=== PATIENT | female | born 1970 | race Caucasian/White ===

== ENCOUNTER → 2020-01-03 09:56 | Outpatient (BNVA) | payer OTHER, SELFPAY | PROVIDERS: Visit Provider Physician Assistant | DX: R11.10 Vomiting, unspecified (principal); Z98.84 Bariatric surgery status | CPT/HCPCS: 99212 ==

== ENCOUNTER 2020-01-11 07:15 | Outpatient (REF) | payer OTHER, SELFPAY ==
--- NOTE | 2020-01-11 07:34 | FL_ITS ---
EXAMINATION: XR GI SERIES CLINICAL INFORMATION: Vomiting. COMPARISON: None TECHNIQUE: Routine upper GI air-contrast study was performed. FINDINGS: Following oral administration of thick barium and effervescent granules, there is normal propagation of bolus from the oral cavity through the pharynx, esophagus into stomach without any evidence of obstruction, narrowing or stricture. On placing patient supine and prone lying, the course, caliber and peristalsis of the stomach, duodenal bulb and the sweep is normal. There is evidence of previous gastric sleeve surgery. There is a large gastroesophageal reflux associated with hiatal hernia. The mucosal pattern of the stomach or duodenum is normal. There are surgical madeleine in the right epigastric region from previous intervention. No gross bony abnormality seen. FLUOROSCOPY TIME: 0.9 minutes DOSE AREA PRODUCT: 15.105 uGy-m2 (microgray-meter squared) FL/FL upper GI series IMPRESSION: Evidence of previous gastric sleeve/reduction surgery with moderate gastroesophageal reflux and a qhcxp-dx-pspihpwh-sized hiatal hernia.
== END 2020-01-11 07:16 | disposition home or self-care (01) ==
LOC: HO.XRAY 07:15
PROVIDERS: Visit Provider Physician Assistant
DX: Z01.818 Encounter for other preprocedural examination (principal); R11.10 Vomiting, unspecified; E66.9 Obesity, unspecified
CPT/HCPCS: 74240

== ENCOUNTER → 2020-01-12 08:50 | Outpatient (BNVA) | payer OTHER, SELFPAY | PROVIDERS: Visit Provider Physician Assistant | DX: Z76.89 Persons encountering health services in other specified circumstances (principal) ==

== ENCOUNTER 2020-01-15 08:24 | Outpatient (REF) | payer OTHER, SELFPAY | END 2020-01-15 08:25 | disposition home or self-care (01) | LOC: HO.US 08:24 | PROVIDERS: Visit Provider Surgery | DX: Z13.89 Encounter for screening for other disorder (principal) ==

== ENCOUNTER 2020-01-25 07:54 | Day surgery (SDC) | payer OTHER, SELFPAY ==
[2020-01-24 10:35] VITALS: BMI 26.9
--- NOTE | 2020-01-24 12:31 | HO.ANESPROP2 ---
Documented by User: Faith Almanza 01/24/20 12:32 HPI - Anesthesia Eval Consult details Narrative: 49yo F for Upper Endoscopy PMFSH Past Medical History Medical History Hx of thyroid cancer Family History Family History Father Diabetes mellitus Glaucoma Hypertension Mother Glaucoma Diabetes mellitus Hypertension Brother Hypertension Sister Arthritis Surgical History Surgical History (Updated 01/25/20 @ 09:29 by Terrie Diaz) H/O thyroidectomy History of sleeve gastrectomy Hx of cholecystectomy Hx of esophagogastroduodenoscopy S/P panniculectomy Social History Social History Alcohol intake: never Smoking Status: Never smoker Second Hand Smoke Exposure: No Use of substances other than those prescribed or required for medical reasons: No Advance Directives: No Advance Directives Information Provided: No Advance Directives on File: No Meds Allergies Allergy/AdvReac Type Severity Reaction Status Date / Time No Known Allergies Allergy Unverified 01/03/20 10:17 [No Known Allergies*] Home Medications Medication Instructions Recorded Confirmed Type calcium citrate 315 mg 2 tab PO BID 01/03/20 01/12/20 History calcium-vitamin D3 6.25 mcg (250 unit) tablet cephalexin 500 mg capsule 500 mg PO BID 01/03/20 01/12/20 History levothyroxine 175 mcg tablet 175 mcg PO DAILY 01/03/20 01/12/20 History thiamine HCl (vitamin B1) 100 mg 100 mg PO DAILY 01/03/20 01/12/20 History tablet vitamin A 10,000 unit capsule 1 cap PO DAILY 01/03/20 01/12/20 History Exam Exam Date and Time: January 24, 2020 1231 Height,Weight and Vital Signs: Height 5 ft 3 in Weight 68.946 kg Assessment and Plan Assessment Anesthesia Assessment: Chart Reviewed Documented by User: Terrie Diaz 01/25/20 09:31 [facility] Past Medical History Medical History Hx of thyroid cancer Family History Family History Father Diabetes mellitus Glaucoma Hypertension Mother Glaucoma Diabetes mellitus Hypertension Brother Hypertension Sister Arthritis Family history of problems with anesthesia: No Surgical History Surgical History (Updated 01/25/20 @ 09:29 by Terrie Diaz) H/O thyroidectomy History of sleeve gastrectomy Hx of cholecystectomy Hx of esophagogastroduodenoscopy S/P panniculectomy History of Problems with Anesthesia: No Social History Social History Alcohol intake: never Smoking Status: Never smoker Second Hand Smoke Exposure: No Use of substances other than those prescribed or required for medical reasons: No Advance Directives: No Advance Directives Information Provided: No Advance Directives on File: No Meds Allergies Allergy/AdvReac Type Severity Reaction Status Date / Time No Known Allergies Allergy Unverified 01/03/20 10:17 [No Known Allergies*] Home Medications Medication Instructions Recorded Confirmed Type calcium citrate 315 mg 2 tab PO BID 01/03/20 01/12/20 History calcium-vitamin D3 6.25 mcg (250 unit) tablet cephalexin 500 mg capsule 500 mg PO BID 01/03/20 01/12/20 History levothyroxine 175 mcg tablet 175 mcg PO DAILY 01/03/20 01/12/20 History thiamine HCl (vitamin B1) 100 mg 100 mg PO DAILY 01/03/20 01/12/20 History tablet vitamin A 10,000 unit capsule 1 cap PO DAILY 01/03/20 01/12/20 History Exam Height,Weight and Vital Signs: Vital Signs Temp Pulse Resp BP Pulse Ox 01/25/20 08:13 98.1 F 68 16 118/73 100 Airway Mallampati Class: II TM Dist: >3cm Neck ROM: Full Heart: RRR Lungs: CTAB Assessment and Plan Assessment Anesthesia Assessment: Anesthesia Plan Discussed and Chart Reviewed Final Anesthetic Review NPO: Yes ASA Class: II Final Preanesthetic Review: No Changes in Pt Med Stat, Meds/Allgs Chart Reviewed, Consent Obtained/Reviewed and Anes Risks/Benef Reviewed Patient Risk: Low Procedure Risk: Low Assessment/Block/Sedation in SS: Assess/Block/Sedation-SS Anesthetic Plan Anesthetic Plan: MAC: Disposition: Standard PACU
[2020-01-25 08:13] VITALS: BP 118/73; PULSE 68; RESP 16; TEMP 36.7; O2SAT 100
[2020-01-25] MEDS: Lactated Ringers 1,000 ML 100 ML IVCONT (09:15)
--- NOTE | 2020-01-25 09:31 | MHC.SHP ---
Pre-Procedural Eval Section A The patient is an INPATIENT: No The History & Physical has been completed within 30 days and I have reviewed it.: Yes Section B Chief Complaint: Gerd Details of Present Illness: GERD Relevant Family History (Specify if Yes): No Relevant Social History: None Present Medications: see Short Stay Collaborative assessment Medical History: No relevant PMH History of Previous Operations: Relevant previous surgery/procedure and date(s) (sleeve gastrectomy) Allergies: Allergies Allergy/AdvReac Type Severity Reaction Status Date / Time No Known Allergies Allergy Unverified 01/03/20 10:17 [No Known Allergies*] Review of Systems Sugical H&P ROS: Negative: Constitution, Cardiovascular, Respiratory, Neurological, Psychiatric, Hem-Onc, Allergic/Immunologic, Gastrointestinal, Genitourinary, Musculoskeletal, Integumentary, Endocrine and Eyes/Ears/Nose/Throat Exam Surgical H&P Exam: Normal: HEENT, Normal: Heart, Normal: Lungs, Normal: Extremities, Normal: Abdomen, Normal: Skin and Normal: Neurological Plan Diagnosis/Plan: Unchanged I have reviewed the history and physical and performed a pertinent physical examination on my patient. No changes have occurred unless specified.
[2020-01-25 10:26] VITALS: BP 110/69; PULSE 88; RESP 20; TEMP 36.6; O2SAT 100
--- NOTE | 2020-01-25 10:32 | PM.OP ---
Brief Operative Note Date of Service: 01/25/20 Pre-op diagnosis: GERD and hiatal hernia, s/p sleeve gastrectomy Post-op diagnosis: same Procedure: PROCEDURE DATE: 01/25/2020 PREOPERATIVE DIAGNOSIS: GERD, hiatal hernia, s/p sleeve gastrectomy POSTOPERATIVE DIAGNOSIS: Same as above. 1) small hiatal hernia PROCEDURE: [id number]-noqkrfuuaqon with biopsies Surgeon: El Gu M.D.. Ph.D. Pastry Decorator: None Anesthesia: IV sedation Estimated blood loss: Minimal FINDINGS AND PROCEDURE: OPERATIVE INDICATIONS: The patient is a 49 year old female known to me who underwent a laparoscopic sleeve gastrectomy. The patient had remarkable weight loss so far and had a completely uneventful recovery. The patient was doing very well but has recently been complaining of GERD. UGI showed GERD and a small hiatal hernia. Based on this information I recommended an upper endoscopy to evaluate the patient's symptoms. Risks and complications of the surgery were discussed with the patient in advance particularly the possibility of perforation or bleeding that may require surgical intervention. The patient understood the risks and was in agreement with the plan. PROCEDURE: After informed consent was obtained by the patient, the patient was transferred to the Operating Room and was placed in the supine position. After successful induction of IV sedation, a mouth block was inserted and the patient was placed in the left lateral decubitus position. An upper endoscopy was performed next, the oropharynx and esophagus appeared within the normal limits. There was a small hiatal hernia 2 cm in length. The z-line was smooth. Two biopsies were obtained from the distal esophagus 2-3 cm proximal to the GE junction and two additional biopsies from the GE junction. The sleeve was entered and it appeared to be of normal size. There was no gastritis at distal antrum. There was no stricture or ulcer. Biopsies were obtained from the proximal sleeve as well as the distal antrum. No significant bleeding was noted from any of the biopsy sites. The scope was then advanced into the duodenum which appeared to be normal as well. At that point the duodenum and the sleeve were decompressed and the scope was withdrawn from the patient's mouth. The patient extubated and was transferred in stable condition to the Recovery Room for further care. I was present and performed all steps of the procedure. There were no residents to assist with this case. El Gu M.D., Ph.D. Surgeon: Abelardo Gu MD Anesthesia: MAC Estimated blood loss (mL): 5 IV fluids (mL): 400 Urine output (mL): 0 (No Edwards to record) Pathology: other (1) distal esophagus x2, GEJ x2, proximal sleeve x1, prepyloric region x1) Condition: stable Disposition: PACU
[2020-01-25 10:41] VITALS: BP 120/70; PULSE 61; RESP 20; TEMP 36.6; O2SAT 100
--- NOTE | 2020-01-25 10:59 | HO.POSTANES ---
Post Anesthesia Evaluation Post Anesthesia Evaluation Vital Signs: Vital Signs Temp Pulse Resp BP Pulse Ox 01/25/20 10:41 97.9 F 61 20 120/70 100 01/25/20 10:26 97.9 F 88 20 110/69 100 01/25/20 08:13 98.1 F 68 16 118/73 100 Anesthesia: Monitored Mental Status: Awake Pain Control: Satisfactory Nausea/Vomiting: None Hydration: Adequate Anesthesia-Related Issues: No Anes. Related Issues
== END 2020-01-25 11:23 | disposition home or self-care (01) ==
PROVIDERS: Visit Provider Surgery
PROC: 0DJ08ZZ Inspection of Upper Intestinal Tract, Via Natural or Artificial Opening Endoscopic (ICD-10-PCS; CPT 43235; principal; 2020-01-25 09:10)
DX: K21.00 Gastro-esophageal reflux disease with esophagitis, without bleeding (principal); K44.9 Diaphragmatic hernia without obstruction or gangrene; Z98.84 Bariatric surgery status; Z90.49 Acquired absence of other specified parts of digestive tract; Z79.899 Other long term (current) drug therapy; Z85.850 Personal history of malignant neoplasm of thyroid
CPT/HCPCS: 43239; 88305; 88342

== ENCOUNTER → 2020-01-31 07:44 | Outpatient (BNVA) | payer OTHER, SELFPAY | PROVIDERS: Visit Provider Surgery | DX: Z76.89 Persons encountering health services in other specified circumstances (principal) ==

== ENCOUNTER → 2020-03-01 08:04 | Outpatient (BNVA) | payer OTHER, SELFPAY | PROVIDERS: Visit Provider Surgery ==

== ENCOUNTER → 2020-03-13 08:26 | Outpatient (BNVA) | payer OTHER, SELFPAY | PROVIDERS: Visit Provider Physician Assistant ==

== ENCOUNTER → 2020-04-05 08:12 | Outpatient (BNVA) | payer OTHER, SELFPAY | PROVIDERS: Visit Provider Surgery ==

== ENCOUNTER 2020-04-09 09:54 | Outpatient (REF) | payer OTHER, SELFPAY ==
[2020-04-09 10:41] LABS: Blood Urea Nitrogen 14 mg/dL (9-16); Estimated Glomerular Filt Rate > 60
== END 2020-04-09 09:55 | disposition home or self-care (01) ==
LOC: HO.LAB 09:54
PROVIDERS: Visit Provider Physician Assistant
DX: R11.0 Nausea (principal)
CPT/HCPCS: 36415; 82565; 84520

== ENCOUNTER 2020-04-12 07:28 | Outpatient (REF) | payer OTHER, SELFPAY ==
--- NOTE | ~2020-04-12 | CT_ITS ---
EXAMINATION: CT ABDOMEN AND PELVIS WITH CONTRAST CLINICAL INFORMATION: Diaphragmatic hernia without obstruction or gangrene COMPARISON: Previous abdominal ultrasound February 2018 TECHNIQUE: Multidetector volumetric images were obtained from the superior aspect of the liver through the pubic symphysis following administration 85 mL of Omnipaque 350 intravenous contrast. Sagittal and coronal reformatted images were obtained on the technologist's workstation. Oral contrast: Yes This CT examination was performed using dose optimization techniques as appropriate, variously including the following: *Automated exposure control *Adjustment of mA and/or kV according to patient size (this includes techniques or standardized protocols for targeted exams where dose is matched to indication/reason for exam; i.e. extremities or head) *Use of iterative reconstruction technique DLP: 4-5 mGy-cm FINDINGS: LUNG BASES: There is linear scarring or subsegmental atelectasis at the right lung base. There is mild right pleural thickening adjacent to the right lower lobe. No diaphragmatic hernia is seen. LIVER, GALLBLADDER, AND BILIARY TREE: The liver is normal in size, shape, and attenuation. There is a 2.5 cm heterogeneously enhancing lesion in the lateral segment of the left lobe of liver. This was not appreciated on ultrasound. This probably represents a hemangioma. No other focal liver lesion is seen. The gallbladder has been removed. There is no biliary duct dilatation. PANCREAS: Unremarkable. SPLEEN: Unremarkable. ADRENAL GLANDS: Unremarkable. KIDNEYS AND URETERS: The kidneys are normal in size, shape, and attenuation. No hydronephrosis, hydroureter, or calculi seen. No perinephric stranding. BLADDER: Unremarkable. GASTROINTESTINAL TRACT: There are postsurgical changes from gastric sleeve procedure. There is a small hiatal hernia. There is mild diverticulosis of the colon. ABDOMINAL WALL: There are postsurgical changes to the anterior abdominal wall. LYMPH NODES: Normal. VASCULAR: Unremarkable. PELVIC VISCERA: There is a small 1.5 cm right ovarian cyst. There is trace fluid in the pelvis. OSSEOUS STRUCTURES: There are may be a transitional vertebral body segment or sacralization of L5. There are degenerative changes of the lower lumbar sacral spine. There are mild degenerative changes at the hip joints. CT/CT abdomen pelvis w con IMPRESSION: Postoperative change from gastric sleeve procedure. Small hiatal hernia. No diaphragmatic hernia is seen. 2.5 cm liver lesion probably representing a hemangioma.
[2020-04-12] MEDS: iohexoL 350 MG/ML 75 ML INFUS..BTL IV (10:10)
[2020-04-12] MEDS: Barium Sulfate Oral (Berry) 450 ML ORAL.SUSP 900 ML PO (10:11)
== END 2020-04-12 07:29 | disposition home or self-care (01) ==
LOC: HO.CT 07:28
PROVIDERS: PCP Internal Medicine; Visit Provider Surgery
DX: K44.9 Diaphragmatic hernia without obstruction or gangrene (principal)
CPT/HCPCS: 74177; Q9967

== ENCOUNTER 2020-04-16 09:33 | Outpatient (REF) | payer OTHER, SELFPAY ==
--- NOTE | ~2020-04-16 | XR_ITS ---
EXAMINATION: XR CHEST CLINICAL INFORMATION: Diaphragmatic hernia. COMPARISON: 05/27/[address] scan of the abdomen and pelvis dated 04/12/2020. TECHNIQUE: 2 views of the chest were obtained. FINDINGS: The lungs are clear. The heart and mediastinal structures are unremarkable. There is a small hiatal hernia. XR/XR chest 2V IMPRESSION: 1. No acute cardiopulmonary process. 2. Small hiatal hernia correlating with recent CT findings.
--- NOTE | 2020-04-16 09:58 | ECG_ITS ---
Test Reason : DIAPRAGMATIC HERNIA Blood Pressure : / mmHG Vent. Rate : 059 BPM Atrial Rate : 059 BPM P-R Int : 152 ms QRS Dur : 062 ms QT Int : 428 ms P-R-T Axes : 049 033 012 degrees QTc Int : 423 ms Sinus bradycardia Low voltage QRS Borderline ECG When compared with ECG of 19-JAN-2018 13:42, No significant change was found Referred By: Abelardo Gu Electronically Signed By:Norman Randall
[2020-04-16 10:06] LABS: MANUAL DIFF FLAG NO
[2020-04-16 10:08] LABS: Basophils Percent Auto 0.9 % (0-2); Eosinophils Absolute Auto 0.1 X10*3/uL (0.0-0.4); Eosinophils Percent Auto 1.6 % (0-4); Hematocrit 41.1 % (37-47); Hemoglobin 13.1 g/dl (12.0-16.0); Imm Gran Abs Auto 0.01 X10*3/uL (0.00-0.03); Imm Gran Pct Auto 0.2 % (0.0-0.4); Lymphocytes Percent Auto 22.5 % (20-40); Mean Corpuscular HGB Conc 31.9 g/dl (31.0-35.0); Mean Corpuscular Hemoglobin 30.5 pg (27.0-33.0); Mean Corpuscular Volume 95.6 fL (80-98); Mean Platelet Volume 10.6 fL (9.4-12.3); Monocytes Absolute Auto 0.5 X10*3/uL (0.1-1.2); Monocytes Percent Auto 10.3 % (2-11); Neutrophils Absolute Auto 2.9 X10*3/uL (2.0-8.3); Neutrophils Percent Auto 64.5 % (45-73); Platelet Count 193 X10*3/uL (160-400); Red Cell Distribution Width 13.4 % (11.0-16.0); White Blood Count 4.5 X10*3/uL (4.8-10.8)
[2020-04-16 10:14] LABS: INTERNATIONAL NORM RATIO 1.1 (0.9-1.1); Prothrombin Time 13.2 SEC (10.8-13.0)
[2020-04-16 10:17] LABS: Partial Thromboplastin Time 34.7 SEC (24.1-38.0)
[2020-04-16 10:26] LABS: Alanine Aminotransferase 22 U/L (0-31); Albumin Level 3.8 g/dL (3.5-5.0); Alkaline Phosphatase 51 U/L (39-117); Anion Gap 7 (12-20); Aspartate Amino Transferase 22 U/L (5-31); Bilirubin Total 0.7 mg/dL (0.0-1.0); Blood Urea Nitrogen 14 mg/dL (9-16); C Reactive Protein 0.06 mg/dL (< or = 0.50); Calcium 8.6 mg/dL (8.4-10.2); Carbon Dioxide 30 mmol/L (22-29); Chloride 106 mmol/L (96-108); Cholesterol 158 mg/dL; Estimated Glomerular Filt Rate > 60; Glucose Random 91 mg/dL (60-115); HDL Cholesterol 43 mg/dL; LDL Cholesterol Calculated 97 mg/dl; Potassium 4.3 mmol/L (3.3-5.1); Sodium 139 mmol/L (135-145); Total Protein 7.8 g/dL (6.5-8.0); Triglycerides 92 mg/dL
[2020-04-16 10:27] LABS: Estimated Average Glucose 100 mg/dL; Hemoglobin A1c % 5.1 %
[2020-04-18 05:17] LABS: Insulin Level Total 4.9 uIU/mL
== END 2020-04-16 09:34 | disposition home or self-care (01) ==
LOC: HO.LAB 09:33
PROVIDERS: Visit Provider Surgery
DX: K44.9 Diaphragmatic hernia without obstruction or gangrene (principal); K21.9 Gastro-esophageal reflux disease without esophagitis; R00.1 Bradycardia, unspecified
CPT/HCPCS: 36415; 71046; 80053; 80061; 83036; 83525; 84443; 85025; 85610; 85730; 86140; 93005

== ENCOUNTER 2020-04-23 13:22 | Inpatient (IN) | payer OTHER, SELFPAY ==
[2020-04-17 10:51] VITALS: BMI 29.0
--- NOTE | 2020-04-22 09:40 | HO.ANESPROP2 ---
Documented by User: Faith Almanza 04/22/20 09:44 HPI - Anesthesia Eval Consult details Narrative: 49yo F for Hernia Repair Diaphragmatic Laproscopic PMFSH Active Problems Active Problems: All Active Problems (Updated 04/17/20 @ 10:40 by Yessenia Tucker) Emesis (Acute) Hiatal hernia (Acute) Overweight (Acute) GERD (gastroesophageal reflux disease) (Acute) Esophagitis determined by biopsy (Acute) H/O thyroidectomy (Acute) Hx of esophagogastroduodenoscopy (Acute) History of sleeve gastrectomy (Acute) Past Medical History Medical History Hx of thyroid cancer Thyroid disease Family History Family History Father Diabetes mellitus Glaucoma Hypertension Mother Glaucoma Diabetes mellitus Hypertension Brother Hypertension Sister Arthritis Surgical History Surgical History H/O thyroidectomy History of sleeve gastrectomy Hx of cholecystectomy Hx of esophagogastroduodenoscopy S/P panniculectomy Social History Social History Alcohol intake: never Smoking Status: Never smoker Second Hand Smoke Exposure: No Advance Directives Information Provided: No Meds Allergies Allergy/AdvReac Type Severity Reaction Status Date / Time No Known Allergies Allergy Verified 04/23/20 08:33 [No Known Allergies*] Home Medications Medication Instructions Recorded Confirmed Last Taken Type calcium citrate 315 mg 2 tab PO BID 01/03/20 04/17/20 Unknown History calcium-vitamin D3 6.25 mcg (250 unit) tablet levothyroxine 175 mcg tablet 175 mcg PO DAILY 01/03/20 04/17/20 04/23/20 06:00 History thiamine HCl (vitamin B1) 100 mg 100 mg PO DAILY 01/03/20 04/17/20 Unknown History tablet vitamin A 10,000 unit capsule 1 cap PO DAILY 01/03/20 04/17/20 Unknown History Exam Exam Date and Time: April 22, 2020 0940 Height,Weight and Vital Signs: Height 5 ft 3 in Weight 74.389 kg Pertinent Lab Results Pertinent Lab Results: Laboratory Tests 04/16/20 09:45 Blood Type A Positive Antibody Screen NEGATIVE Laboratory Tests 04/16/20 04/16/20 09:45 09:45 WBC 4.5 L Hgb 13.1 Hct 41.1 Plt Count 193 Sodium 139 Potassium 4.3 Chloride 106 Carbon Dioxide 30 H BUN 14 Creatinine 0.77 Laboratory Tests 04/16/20 04/16/20 04/16/20 09:45 09:45 09:45 PT 13.2 H INR 1.1 APTT 34.7 Hemoglobin A1c % 5.1 TSH 1.20 Narrative Narrative: EKG 04/16/20 Vent. Rate : 059 BPM Atrial Rate : 059 BPM P-R Int : 152 ms QRS Dur : 062 ms QT Int : 428 ms P-R-T Axes : 049 033 012 degrees QTc Int : 423 ms Sinus bradycardia Low voltage QRS Borderline ECG When compared with ECG of 19-JAN-2018 13:42, No significant change was found Assessment and Plan Assessment Anesthesia Assessment: Chart Reviewed Documented by User: Rohan Parra 04/23/20 11:55 PMFSH Past Medical History Medical History Hx of thyroid cancer Thyroid disease Family History Family History Father Diabetes mellitus Glaucoma Hypertension Mother Glaucoma Diabetes mellitus Hypertension Brother Hypertension Sister Arthritis Surgical History Surgical History H/O thyroidectomy History of sleeve gastrectomy Hx of cholecystectomy Hx of esophagogastroduodenoscopy S/P panniculectomy Social History Social History Alcohol intake: never Smoking Status: Never smoker Second Hand Smoke Exposure: No Advance Directives Information Provided: No Meds Allergies Allergy/AdvReac Type Severity Reaction Status Date / Time No Known Allergies Allergy Verified 04/23/20 08:33 [No Known Allergies*] Home Medications Medication Instructions Recorded Confirmed Last Taken Type calcium citrate 315 mg 2 tab PO BID 01/03/20 04/17/20 Unknown History calcium-vitamin D3 6.25 mcg (250 unit) tablet levothyroxine 175 mcg tablet 175 mcg PO DAILY 01/03/20 04/17/20 04/23/20 06:00 History thiamine HCl (vitamin B1) 100 mg 100 mg PO DAILY 01/03/20 04/17/20 Unknown History tablet vitamin A 10,000 unit capsule 1 cap PO DAILY 01/03/20 04/17/20 Unknown History Exam Airway Mallampati Class: II Neck ROM: Full Loose/Missing/Broken Teeth: No Heart: [id number] Lungs: cta b/l Assessment and Plan Assessment Anesthesia Assessment: Anesthesia Plan Discussed, PAT Visit and Chart Reviewed Final Anesthetic Review NPO: Yes ASA Class: II Final Preanesthetic Review: No Changes in Pt Med Stat, Consent Obtained/Reviewed and Anes Risks/Benef Reviewed Patient Risk: Low Procedure Risk: Low Assessment/Block/Sedation in SS: Assess/Block/Sedation-SS Anesthetic Plan Anesthetic Plan: GA and Agree w/ Assess. and Plan Disposition: Standard PACU
--- NOTE | 2020-04-22 22:41 | MHC.SHP ---
Pre-Procedural Eval Section A The patient is an INPATIENT: Yes The History & Physical has been completed within 30 days and I have reviewed it.: No Section B Chief Complaint: diaphragmatic hernia without obstruction Details of Present Illness: GERD and diaphragmatic hernia Relevant Family History (Specify if Yes): No Relevant Social History: None Present Medications: see Short Stay Collaborative assessment Medical History: No relevant PMH History of Previous Operations: Relevant previous surgery/procedure and date(s) (Sleeve gastrectomy) Allergies: Allergies Allergy/AdvReac Type Severity Reaction Status Date / Time No Known Allergies Allergy Unverified 01/03/20 10:17 [No Known Allergies*] Review of Systems Sugical H&P ROS: Negative: Constitution, Cardiovascular, Respiratory, Neurological, Psychiatric, Hem-Onc, Allergic/Immunologic, Gastrointestinal, Genitourinary, Musculoskeletal, Integumentary, Endocrine and Eyes/Ears/Nose/Throat Exam Surgical H&P Exam: Normal: HEENT, Normal: Heart, Normal: Lungs, Normal: Extremities, Normal: Abdomen, Normal: Skin and Normal: Neurological Plan Diagnosis/Plan: Unchanged I have reviewed the history and physical and performed a pertinent physical examination on my patient. No changes have occurred unless specified.
[2020-04-23] VITALS (15 sets, daily range): BP systolic 109–166; BP diastolic 70–94; PULSE 56–78; RESP 14–20; TEMP 36.1–36.9; O2SAT 98–100
[2020-04-23 09:13] LABS: COVID-19 Test Negative (Negative)
--- NOTE | 2020-04-23 13:20 | P.BOP_ITS ---
Brief Operative Note Date of Service: 04/23/20 Pre-op diagnosis: GERD and diaphragmatic hernia Post-op diagnosis: same Procedure: PROCEDURE: Esophago-gastroscopy, laparoscopic repair of incarcerated diaphragmatic hernia, laparoscopic lysis of adhesions, INDICATIONS: This is a 49 year-old female who underwent a laparoscopic sleeve gastrectomy on 05/26/2018. The patient has done well achieving a BMI of 25.2 kg/m2. She has developed however persistent GERD which is not well controlled with continuous use of PPI. An UGI showed a diaphragmatic hernia which was not present at the preoperative UGI. This was confirmed by endoscopy which also demonstrated esophagitis. The risks and complications of the procedure were discussed with the patient in advance, particularly the possibility of ; pulmonary embolism; bleeding; GERD; cardiac, pulmonary, or renal complications. The patient understood all the risks, and was in agreement to proceed with surgery. DESCRIPTION OF PROCEDURE: After informed consent was obtained from the patient, the patient was given preoperative antibiotics, and was transferred to the operating room. After successful induction of general anesthesia, pneumatic compressive devices were placed on both lower extremities. An upper endoscopy was performed next. The oropharynx and esophagus appeared to be within normal limits. There was a diaphragmatic hernia present of moderate size consistent with the findings of the preoperative upper GI. The stomach was entered. Then after all fluid and air were suctioned and the stomach was fully decompressed, the scope was withdrawn and secured in the mid esophagus. The patient was then prepped and draped in the usual sterile manner, and abdominal access was established at the right upper quadrant with the Shalini technique. A 12 mm blunt port was inserted, and the abdomen was insufflated with CO2 to a pressure of 15 mmHg. Under direct visualization, additional ports were placed, specifically two 5 mm Versi-step ports to the left upper quadrant, and a 5 mm Versi-Step port to the right upper quadrant. 1% lidocaine plan was used to infiltrate all port sites as well as all fascia defects. Using the EndoClose suture passer device, we placed a #1 Polysorb tie across the falciform ligament in order to retract it up against the abdominal wall and prevent injury of the ligament with our instruments during the procedure. There were no adhesions in the abdomen. Following that, the patient was placed in a steep reverse Trendelenburg position. An additional 5 mm port was placed to the right flank for the Mediflex retractor that was used to retract the left lobe of the liver. There was an obvious significant-sized hiatal hernia. I continued dissecting along the hiatus toward the left giuliano and the angle of His. I fully mobilized the fat pad that was incarcerated in the hernia. Dissection was difficult as there was scarring from previous sleeve gastrectomy. Nevertheless the right planes were identified and the left giuliano was completely freed from the esophagus. I then continued by dissecting even further into the posterior retro- esophageal space all the way to the angle of His. I continued to mobilize the esophagus into the mediastinum circumferentially. Both vagal nerves were seen and preserved. The right giuliano was also dissected completely. This was also difficult because there was a replaced left hepatic artery. This was preserved but made the dissection more difficult. At that point, I was able to have at least 3 to 5 cm of esophagus into the abdomen. After I completely mobilized the esophagus from both the left and right giuliano and I had a good mobilization of the esophagus circumferentially, I closed the hernia defect with three interrupted #0 Surgidac sutures using the Endo Stitch device, two which were placed posterior and one anterior to the esophagus. An upper endoscopy was performed. There was no narrowing at the GE junction. The GE junction was intra-abdominal for at least 2-3cm confirmed by endoscopy. The scope was easily advanced all the way to the pylorus which was clearly visualized. There was no narrowing anywhere and the sleeve's caliber was even throughout. The sleeve's staple line was inspected and there was no evidence of ischemia, bleeding or dehiscence. At that point the gastroscope was withdrawn from the patient?s mouth while we were decompressing the bowel and the stomach from any remaining air. I looked into the lesser sac to see how the sleeve was situating and it was situating well. There was no bleeding from the staple line, spleen, or short gastric vessels. The Mediflex retractor was removed, and the undersurface of the liver was inspected and there was no bleeding. The patient was placed in supine position. I closed the fascial defect of the 12 mm port site with a figure of eight #1 Polysorb suture. Then 100 cc 0.25 % Marcaine plain with 10 mg of Dexamethasone were used to infiltrate the fascial closure as well as all skin incisions. At this point, the abdomen was deflated, all ports were removed under direct vision, and no bleeding was noted from any of the port sites. The skin incisions were irrigated with saline and were closed with 4-0 absorbable monofilament sutures. Steri-Strips and OpSites were used to cover all incisions. The patient was extubated and was transferred in stable condition to the recovery room for further care. I was present and performed all elena parts of the procedure. Ms. Orellana was the apartment assistant manager. There were no residents to assist with this case. El Gu MD, PhD, FACS Surgeon: Abelardo Gu MD Anesthesia: GETA, local and other (TAP block) Sheet Metal Layout Worker: Jerri Orellana Estimated blood loss (mL): 10 IV fluids (mL): 2,000 Urine output (mL): 0 (No Edwards to record) Pathology: none sent Condition: stable Disposition: PACU
--- NOTE | 2020-04-23 13:28 | PM.DS ---
DS: Providers Provider Date of Service: 04/24/20 Primary care physician: Unknown Physician DS: Medications Discharge Medications Home Medications: Home Medications Medication Instructions Recorded Confirmed calcium citrate 315 mg 2 tab PO BID 01/03/20 04/17/20 calcium-vitamin D3 6.25 mcg (250 unit) tablet levothyroxine 175 mcg tablet 175 mcg PO DAILY 01/03/20 04/17/20 thiamine HCl (vitamin B1) 100 mg 100 mg PO DAILY 01/03/20 04/17/20 tablet vitamin A 10,000 unit capsule 1 cap PO DAILY 01/03/20 04/17/20 Previous Rx's Medication Instructions Recorded pantoprazole 40 mg tablet,delayed 40 mg PO DAILY #30 tab 01/17/20 release sucralfate 1 gram tablet 1 g PO BID #60 tab 02/14/20 ondansetron HCl 4 mg tablet 4 mg PO Q12H #20 tab 04/13/20 DS: Summary Time Spent with Patient Time attestation: Total time spent providing and/or coordinating discharge services: 15 minutes ADMITTING DIAGNOSIS: hiatal hernia, GERD, hx morbid obesity, thyroid cancer DISCHARGE DIAGNOSIS: same, s/p laparoscopic hiatal hernia repair PAST SURGICAL HISTORY: laparoscopic sleeve gastrectomy, EGD, paaniculectomy, throidectomy, cholecystectomy PROCEDURE: upper endoscopy, laparoscopic hiatal hernia repair DISCHARGE SUMMARY: History of Present Illness: The patient is a 49 year-old woman with intractable reflux symptoms s/p laparoscopic sleeve gastrectomy who lost a total of 90.4 lbs or 35.5% TBWL. PT had CT confirmation of her reflux and was consented for laparoscopic repair of hiatal hernia. Risks and complications of the surgery were discussed with the patient in advance, particularly the possibility of , pulmonary embolism, anastomotic leak, bleeding, bowel injury, GERD, cardiac, renal or pulmonary complications. The patient understood all the risks and was in agreement with the surgical plan. Hospital Course: The patient underwent an uneventful laparoscopic hiatal hernia repair on the day of admission. Postoperatively, the patient was transferred to the surgical floor. The patient was on IV Acetaminophen and IV dilaudid for pain control. Patient was started on clear liquid diet POD #0. On postoperative day one, the patient was feeling well without nausea, vomiting, fevers, or tachycardia. The patient had some mild incisional pain. The abdomen was soft. On the morning of postoperative day one the patient did fairly well, having some incisional pain, but able to ambulate adequately and to tolerate liquids well. Since the patient is doing well, we decided that the patient was ready to be discharged. The patient was given instructions to follow-up with me next week and to call my office for any fever over 101, persistent abdominal pain, nausea, vomiting, GERD, symptoms of DVT such as calf tenderness, or leg swelling, or pulmonary embolism such as chest pain or shortness of breath. The patient was given prescription for Tylenol for pain, Zofran prn for nausea, and pantoprazole and carafate. The patient was encouraged to ambulate and use the incentive spirometer. The patient was allowed to shower, but no baths, and encouraged to stay active at home. All of these instructions were given to the patient personally. All questions were answered and the patient understood all instructions, the instructions were also given to the patient in print. Discharge coordination time: Less than 30 minutes Physical Exam Vital Signs: Vital Signs: Last Vital Signs Temp 97.2 F 04/23/20 09:02 Pulse 56 04/23/20 09:02 Resp 16 04/23/20 09:02 BP 125/77 04/23/20 09:02 Pulse Ox 99 04/23/20 09:02 Body Mass Index 29.0 DS: Data Data Completed and Pending Labs on day of discharge: Laboratory Results - last 24 hr 04/23/20 08:35 COVID-19 (MEY) Negative COVID-19 Clin Com See Note Discharge Plan Discharge Patient Disposition: Home, Self-Care Referrals: Physician,Unknown [Primary Care Provider] - Discharge Medications: Continued pantoprazole 40 mg tablet,delayed release (DR/EC) 40 mg PO DAILY Qty: 30 RF: 3 sucralfate 1 gram tablet 1 g PO BID Qty: 60 RF: 0 ondansetron HCl [Zofran] 4 mg tablet 4 mg PO Q12H Qty: 20 RF: 0 levothyroxine 175 mcg tablet 175 mcg PO DAILY RF: 0 vitamin A 10,000 unit capsule 1 cap PO DAILY RF: 0 calcium citrate-vitamin D3 315 mg-6.25 mcg (250 unit) tablet 2 tab PO BID RF: 0 thiamine HCl (vitamin B1) 100 mg tablet 100 mg PO DAILY RF: 0 Discharge Orders: Discharge Order (Routine); Ordered 04/24/20 Ordered By: Abelardo Gu Activity on Discharge: As tolerated Activity Restrictions/Additional Instructions: No tub baths, sex or returning to work until discussed at first post op appointment. No exercise, alcohol, tobacco or illegal drug use. Continue to use incentive spirometer hourly while awake. Walk in home for 5- 10 minutes every 2 hours during the first week. Care Plan Goals: REsolve GERD Health Concerns: none Plan of Treatment: Start phsae 3 bariatric diet
--- NOTE | 2020-04-23 13:31 | PM.PNGS ---
Subjective Subjective Date of Service: 04/24/20 Interval history: Patient has mild incisional pain but was able to ambulate and use the incentive spirometer. She is tolerating 1oz of water every 15min. Physical Exam Vital Signs: Vital Signs: Last Vital Signs Temp 97.2 F 04/23/20 09:02 Pulse 56 04/23/20 09:02 Resp 16 04/23/20 09:02 BP 125/77 04/23/20 09:02 Pulse Ox 99 04/23/20 09:02 Body Mass Index 29.0 GI: Inspection: Yes normal to inspection and Yes incision (dry, clean and intact) Extrem: Right lower extremity: normal to inspection (no calf tenderness) Left lower extremity: normal to inspection (no calf tenderness) Progress Note: A&P Assessment and plan (1) Hiatal hernia: Problem details: reviewed UGI with Dr Casanova - no surgical treatment needed at this time. Status: Acute (2) GERD (gastroesophageal reflux disease): Status: Acute (3) Overweight: Status: Acute (4) Esophagitis determined by biopsy: Status: Acute (5) Hypothyroidism: Status: Acute (6) Anxiety: Status: Acute (7) Headaches due to old head injury: Status: Acute (8) Status post repair of paraesophageal diaphragmatic hernia: Status: Acute Assessment and Plan: 49 year old Female was admitted 04/23/2020 with morbid obesity and comorbidities. Problem 1: s/p repair of incarcerated diaphragmatic hernia and lysis of adhesions Status: Doing well Plan: Check am labs, If OK, will begin phase 1 bariatric diet. Fall Risk Details Current Medications: Current Medications Generic Name Dose Route Start Last Admin Trade Name Freq PRN Reason Stop Dose Admin Fentanyl 50 mcg 04/23/20 11:55 Fentanyl Citrate/Pf 100 Mcg/2 Ml Vial IVPUSH Q5M PRN Pain, Moderate (Pain Scale 4-6 Hydromorphone HCl 0.5 mg 04/23/20 11:55 Hydromorphone Hcl 0.5 Mg/0.5 Ml Syringe IVPUSH Q5M PRN Pain, Severe (Pain Scale 7-10) Lactated Ringer's 1,000 mls @ 100 mls/hr 04/22/20 22:45 Lr IVCONT .Q10H MARCO Lactated Ringer's 1,000 mls @ 100 mls/hr 04/23/20 08:30 Lr IVCONT .Q10H MARCO Promethazine HCl 12.5 mg/ 50.5 mls @ 202 mls/hr 04/23/20 11:55 Sodium Chloride IV ONCE PRN Nausea and Vomiting Ondansetron HCl 4 mg 04/23/20 11:55 Ondansetron Hcl 4 Mg/2 Ml Vial IVPUSH ONCE PRN Nausea and Vomiting Oxycodone HCl 10 mg 04/23/20 11:55 Oxycodone Hcl Immed Release 5 Mg Tablet PO ONCE PRN Pain, Mild (Pain Scale 1-3) Time Spent With Patient Time: Total time spent is greater than 50% in coordination of care (as documented) at patient's floor/unit and/or counseling patient: Time with patient: less than 15 minutes
[2020-04-23] MEDS: oxyCODONE HCl Immed Release 5 MG TABLET 10 MG PO (14:30)
[2020-04-23] MEDS: Lactated Ringers 1,000 ML 125 ML IVCONT (16:12)
[2020-04-23] MEDS: 0.9 % Sodium Chloride Flush 3 ML SYRINGE IVFLUSH ×2 (16:13→22:59)
[2020-04-23] MEDS: ceFAZolin Sodium/Dextrose,Iso 2 GM/50 ML PIGGYBACK IV (16:23)
[2020-04-23] MEDS: Famotidine/PF 20 MG/2 ML VIAL IVPUSH ×2 (16:26→22:59)
[2020-04-23] MEDS: HYDROmorphone HCl 0.5 MG/0.5 ML SYRINGE 0.25 MG IVPUSH ×2 (16:38→22:58)
[2020-04-23] MEDS: ondansetron HCL 4 MG/2 ML VIAL IVPUSH (18:26)
[2020-04-24] VITALS: BP 92/60; PULSE 64; RESP 18; TEMP 36.4; O2SAT 99
[2020-04-24] MEDS: Lactated Ringers 1,000 ML 125 ML IVCONT (00:38)
[2020-04-24 03:27] VITALS: BP 93/58; PULSE 64; RESP 18; TEMP 37; O2SAT 97
[2020-04-24 03:45] VITALS: RESP 18
[2020-04-24] MEDS: ondansetron HCL 4 MG/2 ML VIAL IVPUSH (03:45)
[2020-04-24] MEDS: HYDROmorphone HCl 0.5 MG/0.5 ML SYRINGE 0.25 MG IVPUSH (03:45)
[2020-04-24 06:49] LABS: MANUAL DIFF FLAG NO
[2020-04-24 06:57] LABS: Basophils Percent Auto 0.2 % (0-2); Hematocrit 37.7 % (37-47); Hemoglobin 12.2 g/dl (12.0-16.0); Imm Gran Abs Auto 0.01 X10*3/uL (0.00-0.03); Imm Gran Pct Auto 0.2 % (0.0-0.4); Lymphocytes Percent Auto 15.1 % (20-40); Mean Corpuscular HGB Conc 32.4 g/dl (31.0-35.0); Mean Corpuscular Hemoglobin 30.3 pg (27.0-33.0); Mean Corpuscular Volume 93.8 fL (80-98); Mean Platelet Volume 10.9 fL (9.4-12.3); Monocytes Absolute Auto 0.6 X10*3/uL (0.1-1.2); Monocytes Percent Auto 9.2 % (2-11); Neutrophils Absolute Auto 4.9 X10*3/uL (2.0-8.3); Neutrophils Percent Auto 75.3 % (45-73); Platelet Count 207 X10*3/uL (160-400); Red Blood Count 4.02 X10*6/uL (4.20-5.50); Red Cell Distribution Width 13.4 % (11.0-16.0); White Blood Count 6.5 X10*3/uL (4.8-10.8)
[2020-04-24 07:20] LABS: Anion Gap 10 (12-20); Blood Urea Nitrogen 8 mg/dL (9-16); Calcium 7.8 mg/dL (8.4-10.2); Carbon Dioxide 26 mmol/L (22-29); Chloride 103 mmol/L (96-108); Creatinine Clr Calc Pharmacy 101.6; Estimated Glomerular Filt Rate > 60; Glucose Random 115 mg/dL (60-115); Potassium 4.3 mmol/L (3.3-5.1); Sodium 135 mmol/L (135-145)
[2020-04-24 07:21] VITALS: BP 92/60; PULSE 65; RESP 16; TEMP 35.5; O2SAT 100
[2020-04-24 08:00] VITALS: RESP 16
[2020-04-24] MEDS: Levothyroxine Sodium 175 MCG TABLET PO (09:08)
[2020-04-24] MEDS: Famotidine/PF 20 MG/2 ML VIAL IVPUSH (09:08)
--- NOTE | 2020-04-24 09:27 | MHC.CM.PN ---
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 IN [place], TO VERIFY. PT ALSO REPORTS HER HCP IS HER SISTER, COPY HAS BEEN REQUESTED. DISCHARGE PLAN: HOME SELF-CARE, SISTER TO TRANSPORT. HCP: BENIGNO LIRA [phone].
--- NOTE | 2020-04-24 09:38 | MHC.CM.PN ---
PT DISCHARGING TODAY 04/24/20 HOME SELF-CARE, SISTER TO TRANSPORT.
--- NOTE | 2020-04-24 12:17 | HO.POSTANES ---
Post Anesthesia Evaluation Post Anesthesia Evaluation Vital Signs: Vital Signs Temp Pulse Resp BP Pulse Ox 04/24/20 08:00 16 04/24/20 07:21 96 F L 65 16 92/60 100 04/24/20 03:45 18 04/24/20 03:27 98.6 F 64 18 93/58 L 97 Anesthesia: General Endotracheal-GETA Mental Status: Awake Pain Control: Satisfactory Hydration: Adequate Anesthesia-Related Issues: No Anes. Related Issues
== END 2020-04-24 11:27 | disposition home or self-care (01) | DRG 220 ==
LOC: HO.SSS 13:28 → HO.SSSA 15:12 → HO.S3 15:18
PROVIDERS: Physician Assistant; Admitting Provider Surgery; PCP Nurse Practitioner Family; Visit Provider Surgery
PROC: 0BQT4ZZ Repair Diaphragm, Percutaneous Endoscopic Approach (ICD-10-PCS; principal; 2020-04-23 10:10)
DX: K44.0 Diaphragmatic hernia with obstruction, without gangrene (principal); E03.9 Hypothyroidism, unspecified; F41.9 Anxiety disorder, unspecified; K66.0 Peritoneal adhesions (postprocedural) (postinfection); K21.9 Gastro-esophageal reflux disease without esophagitis; Z20.822 Contact with and (suspected) exposure to COVID-19; Z98.84 Bariatric surgery status; Z79.899 Other long term (current) drug therapy
CPT/HCPCS: 36415; 80048; 85025; 86850; 86900; 87635; 99024; J0131; J0690; J1100; J1170; J2250; J2405; J3010

== ENCOUNTER → 2020-05-01 08:03 | Outpatient (BNVA) | payer OTHER, SELFPAY | PROVIDERS: Visit Provider Surgery | DX: E66.3 Overweight (principal); Z68.29 Body mass index [BMI] 29.0-29.9, adult; Z98.890 Other specified postprocedural states; Z87.19 Personal history of other diseases of the digestive system; Z71.3 Dietary counseling and surveillance | CPT/HCPCS: 99212 ==

== ENCOUNTER 2020-05-15 09:14 | Outpatient (REF) | payer OTHER, SELFPAY ==
--- NOTE | ~2020-05-15 | FL_ITS ---
EXAMINATION: FL UPPER GI WITH GASTROGRAFIN, LIMITED CLINICAL INFORMATION: Vomiting. Status post sleeve gastrectomy and previous hiatal hernia repair. COMPARISON: 01/11/2020 TECHNIQUE: Gastrografin upper GI examination. FINDINGS: Patient swallowed Gastrografin without aspiration. There was some columnization of the lower esophagus related to some delayed emptying in the region of the GE junction. There is some narrowing of the GE junction but also with small component of spasm present. Clips from previous hiatal hernia repair and sleeve gastrectomy present. No extravasation of Gastrografin was identified. FL/FL upper GI w gastrografin IMPRESSION: Narrowing in region of the gastroesophageal junction with some degree of spasm present. There was columnization of the distal third of the esophagus while drinking fluid which did eventually drain over time. No extravasation of Gastrografin.
== END 2020-05-15 09:15 | disposition home or self-care (01) ==
LOC: HO.XRAY 09:14
PROVIDERS: Visit Provider Surgery
DX: R11.10 Vomiting, unspecified (principal)
CPT/HCPCS: 74240

== ENCOUNTER → 2020-06-18 09:47 | Outpatient (BNVA) | payer OTHER, SELFPAY | PROVIDERS: Visit Provider Physician Assistant ==

== ENCOUNTER → 2020-06-19 08:05 | Outpatient (BNVA) | payer OTHER, SELFPAY | PROVIDERS: Visit Provider Surgery | DX: E66.3 Overweight (principal); Z68.29 Body mass index [BMI] 29.0-29.9, adult | CPT/HCPCS: 99212 ==

== ENCOUNTER → 2020-07-19 09:50 | Outpatient (BNVA) | payer OTHER, SELFPAY | PROVIDERS: Visit Provider Physician Assistant | DX: E66.3 Overweight (principal); Z98.890 Other specified postprocedural states; Z87.19 Personal history of other diseases of the digestive system; Z90.3 Acquired absence of stomach [part of] | CPT/HCPCS: 99212 ==

== ENCOUNTER → 2020-11-20 09:44 | Outpatient (BNVA) | payer OTHER, SELFPAY | PROVIDERS: Visit Provider Physician Assistant Surgical | DX: E66.3 Overweight (principal); K59.00 Constipation, unspecified; Z87.19 Personal history of other diseases of the digestive system; Z98.890 Other specified postprocedural states; Z68.30 Body mass index [BMI] 30.0-30.9, adult | CPT/HCPCS: 99212 ==

== ENCOUNTER 2020-12-23 08:55 | Outpatient (REF) | payer OTHER, SELFPAY ==
--- NOTE | ~2020-12-23 | FL_ITS ---
EXAMINATION: FL UPPER GI AIR CONTRAST SERIES CLINICAL INFORMATION: Status post gastric sleeve surgery presence with retrosternal and lower chest pain and reflux. COMPARISON: None. TECHNIQUE: Routine upper GI air-contrast study was performed. FINDINGS: Following oral administration of thick barium and effervescent granules, there is normal propagation of bolus from the oral cavity through the pharynx and esophagus and into stomach without any evidence of obstruction, narrowing or stricture. There is diffuse abnormal granular pattern distal esophagus likely secondary to significant gastroesophageal reflux seen during the exam. There is evidence of previous gastric sleeve surgery with visualized stomach, duodenal bulb and the sweep appearing normal. There is moderate gastroesophageal reflux seen throughout the exam in supine and almost upright 60 degrees. FLUOROSCOPY TIME: 1.6 minutes. DOSE AREA PRODUCT: 22.255 uGy-m2 (microgray-meter squared). FL/FL upper GI series IMPRESSION: Large gastroesophageal reflux in supine and upright views. Abnormal distal esophageal granular mucosal pattern, likely conversion of columnar mucosa to squamous epithelium. Correlate with endoscopy. No evidence of hiatal hernia. Evidence of previous gastric sleeve surgery.
== END 2020-12-23 08:56 | disposition home or self-care (01) ==
LOC: HO.XRAY 08:55
PROVIDERS: Visit Provider Physician Assistant Surgical
DX: E66.3 Overweight (principal); Z98.890 Other specified postprocedural states; Z87.19 Personal history of other diseases of the digestive system
CPT/HCPCS: 74240

== ENCOUNTER → 2020-12-31 09:43 | Outpatient (BNVA) | payer OTHER, SELFPAY | PROVIDERS: Referring Provider Physician Assistant; Visit Provider Physician Assistant Surgical | DX: Z11.0 Encounter for screening for intestinal infectious diseases (principal) | CPT/HCPCS: 99211 ==

== ENCOUNTER 2021-01-01 16:09 | Outpatient (REF) | payer OTHER, SELFPAY ==
[2021-01-03 07:18] LABS: H Pylori Breath Test Positive (Negative)
== END 2021-01-01 16:10 | disposition home or self-care (01) ==
LOC: HO.LNP 16:09
PROVIDERS: Visit Provider Physician Assistant Surgical
DX: Z01.818 Encounter for other preprocedural examination (principal)
CPT/HCPCS: 83013

== ENCOUNTER → 2021-01-08 08:00 | Outpatient (BNVA) | payer OTHER, SELFPAY | PROVIDERS: PCP Physician Assistant; Visit Provider Physician Assistant Surgical ==

== ENCOUNTER 2021-02-11 09:36 | Outpatient (REF) | payer OTHER, SELFPAY ==
[2021-02-12 08:32] LABS: H Pylori Breath Test Negative (Negative)
== END 2021-02-11 09:37 | disposition home or self-care (01) ==
LOC: HO.LNP 09:36
PROVIDERS: Physician Assistant; PCP Physician Assistant; Referring Provider Physician Assistant; Visit Provider Surgery
DX: Z01.818 Encounter for other preprocedural examination (principal); Z11.0 Encounter for screening for intestinal infectious diseases
CPT/HCPCS: 83013; 99211

== ENCOUNTER → 2021-02-19 09:22 | Outpatient (BNVA) | payer SELFPAY | PROVIDERS: Referring Provider Physician Assistant; Visit Provider Physician Assistant Surgical | DX: E66.3 Overweight (principal); Z68.29 Body mass index [BMI] 29.0-29.9, adult; A04.8 Other specified bacterial intestinal infections; K21.9 Gastro-esophageal reflux disease without esophagitis | CPT/HCPCS: 99212 ==

== ENCOUNTER 2021-06-10 08:37 | Outpatient (REF) | payer OTHER, SELFPAY ==
[2021-06-10 10:53] LABS: Estimated Average Glucose 103 mg/dL; Hemoglobin A1c % 5.2 %
[2021-06-10 11:39] LABS: Folate 12.3 ng/mL (> or = 4.0); Vitamin B12 426 pg/mL (200-900)
[2021-06-10 13:15] LABS: Anion Gap 10 (12-20); Blood Urea Nitrogen 13 mg/dL (9-16); C Reactive Protein 0.05 mg/dL (< or = 0.50); Calcium 9.4 mg/dL (8.4-10.2); Carbon Dioxide 27 mmol/L (22-29); Chloride 105 mmol/L (96-108); Cholesterol 162 mg/dL; Estimated Glomerular Filt Rate > 60; Glucose Random 91 mg/dL (60-115); HDL Cholesterol 43 mg/dL; Iron 93 mcg/dL (30-160); LDL Cholesterol Calculated 101 mg/dl; Percent Iron Saturation 33 % (15-50); Potassium 4.4 mmol/L (3.3-5.1); Sodium 138 mmol/L (135-145); Total Iron Binding Capacity 278 mcg/dL (228-428); Triglycerides 93 mg/dL; Unsaturated Iron Binding 185 ug/dL
[2021-06-10 13:38] LABS: Insulin 14 uU/mL (2-29)
[2021-06-10 13:41] LABS: Ferritin 51 ng/mL (10-250); TSH reflex Free T4 0.01 uIU/mL (0.32-4.0); Vitamin D 25-OH Total 28.7 ng/mL (>30)
[2021-06-10 14:20] LABS: Free T4 (Free Thyroxine) 1.59 ng/dL (0.71-1.85)
[2021-06-11 14:11] LABS: Calcium (PTHI) 9.1 mg/dL (8.6-10.4); PTHI 36 pg/mL (16-77)
[2021-06-14 14:30] LABS: Zinc 61 mcg/dL (60-130)
[2021-06-15 23:51] LABS: Vitamin A 30 mcg/dL (38-98)
[2021-06-20 12:56] LABS: Vitamin B1 <6 nmol/L (8-30)
== END 2021-06-10 08:38 | disposition home or self-care (01) ==
LOC: HO.LAB 08:37
PROVIDERS: PCP Physician Assistant; Visit Provider Physician Assistant Surgical
DX: K44.9 Diaphragmatic hernia without obstruction or gangrene (principal); R11.10 Vomiting, unspecified; E66.3 Overweight; Z68.29 Body mass index [BMI] 29.0-29.9, adult; Z98.890 Other specified postprocedural states; Z87.19 Personal history of other diseases of the digestive system
CPT/HCPCS: 36415; 80048; 80061; 82306; 82607; 82728; 82746; 83036; 83525; 83540; 83970; 84425; 84439; 84443; 84590; 84630; 86140

== ENCOUNTER 2021-06-16 11:44 | Day surgery (SDC) | payer OTHER, SELFPAY ==
--- NOTE | 2021-06-16 13:02 | MHC.SHP ---
Pre-Procedural Eval Section A Date of Service: 06/16/21 The patient is an INPATIENT: No The History & Physical has been completed within 30 days and I have reviewed it.: Yes Section B Chief Complaint: Vomiting, unspecified Relevant Family History (Specify if Yes): No Relevant Social History: None Present Medications: None Medical History: No relevant PMH History of Previous Operations: Relevant previous surgery/procedure and date(s) (sleeve gastrectomy, laparoscopic hiatal hernia repair) Allergies: Allergies Allergy/AdvReac Type Severity Reaction Status Date / Time No Known Allergies Allergy Verified 06/10/21 08:42 [No Known Allergies*] Review of Systems Sugical H&P ROS: Negative: Constitution, Cardiovascular, Respiratory, Neurological, Psychiatric, Hem-Onc, Allergic/Immunologic, Gastrointestinal, Genitourinary, Musculoskeletal, Integumentary, Endocrine and Eyes/Ears/Nose/Throat Exam Surgical H&P Exam: Normal: HEENT, Normal: Heart, Normal: Lungs, Normal: Extremities, Normal: Abdomen, Normal: Skin and Normal: Neurological Plan Diagnosis/Plan: Unchanged (EGD to assess the cause of vomiting and rule out esophagitis. Risks of bleeding and perforation were discussed with the patient and she was in agreement with the plan) I have reviewed the history and physical and performed a pertinent physical examination on my patient. No changes have occurred unless specified.
--- NOTE | 2021-06-16 13:07 | P.BOP_ITS ---
Brief Operative Note Date of Service: 06/16/21 Pre-op diagnosis: GERD and vomiting, s/p sleeve gastrectomy and hiatal hernia repair Post-op diagnosis: same (small hiatal hernia, esophagitis grade 1) Procedure: PROCEDURE DATE: 06/16/2021 PREOPERATIVE DIAGNOSIS: GERD and vomiting, s/p sleeve gastrectomy POSTOPERATIVE DIAGNOSIS: ?Same as above. 1) small hiatal hernia, 2) esophagitis grade 1 PROCEDURE: [id number] with biopsies Surgeon: ?El Gu M.D.. Ph.D. Adult And Pediatric Neurologist: None ? Anesthesia: IV sedation Estimated blood loss: ?Minimal FINDINGS AND PROCEDURE: ? OPERATIVE INDICATIONS: ?The patient is a 50 year old female known to me who underwent a laparoscopic sleeve gastrectomy by me. The patient had good weight loss so far and had a completely uneventful recovery.? The patient was doing very well but has been complaining of GERD. Eventualy she was found to have a hiatal hernia that was not present before the sleeve gastrectomy. A laparoscopic repair of the hernia was performed. The patient however continues to complain for GERD and vomiting. Based on this information I recommended an upper endoscopy to evaluate the patient's symptoms. Risks and complications of the surgery were discussed with the patient in advance particularly the possibility of perforation or bleeding that may require surgical intervention. The patient understood the risks and was in agreement with the plan. ? PROCEDURE: After informed consent was obtained by the patient, the patient was ?transferred to the Operating Room and was placed in the supine position.? After successful induction of IV sedation, a mouth block was inserted and the patient was placed in the left lateral decubitus position. An upper endoscopy was performed next, the oropharynx and esophagus appeared within the normal limits. There was a very small 1cm hiatal hernia. The z-line was smooth. Two biopsies were obtained from the distal esohagus 2-3 cm proximal to the GE junction and two additional biopsies from the GE junction. The sleeve was entered and it appeared to be of normal size. There was no gastritis. There was no stricture or ulcer. The caliber was even throughout the sleeve. Biopsies were obtained from the proximal sleeve as well as the distal antrum. No significant bleeding was noted from any of the biopsy sites. The scope could not be advanced into the duodenum. At that point the sleeve were decompressed and the scope was withdrawn from the patient's mouth. The patient was awaken and was transferred in stable condition to the Recovery Room for further care. I was present and performed all steps of the procedure. There were no residents to assist with this case. El Gu M.D., Ph.D. Surgeon: Abelardo Gu MD Anesthesia: MAC Was an Adult And Pediatric Neurologist used for this Procedure?: No Estimated blood loss (mL): 0 IV fluids (mL): 400 Urine output (mL): 0 (No Edwards to record) Pathology: other (1) GE junction, 2) distal esophagus, 3) proximal sleeve, 4) antrum) Condition: stable Disposition: PACU
[2021-06-16 13:12] VITALS: BMI 28.1
[2021-06-16 13:36] VITALS: BP 127/79; PULSE 65; RESP 18; TEMP 36.9; O2SAT 95
--- NOTE | 2021-06-16 14:10 | P.CONAN_ITS ---
[facility] Active Problems Active Problems: All Active Problems (Updated 06/10/21 @ 09:39 by NIESHA May) H. pylori infection (Acute) Constipation (Acute) Status post repair of paraesophageal diaphragmatic hernia (Acute) Headaches due to old head injury (Acute) Anxiety (Acute) Hypothyroidism (Acute) Emesis (Acute) Hiatal hernia (Acute) Overweight (Acute) GERD (gastroesophageal reflux disease) (Acute) Esophagitis determined by biopsy (Acute) H/O thyroidectomy (Acute) Hx of esophagogastroduodenoscopy (Acute) History of sleeve gastrectomy (Acute) Past Medical History Medical History Anxiety Headaches due to old head injury Hx of thyroid cancer Hypothyroidism Thyroid disease Family History Family History Father Diabetes mellitus Glaucoma Hypertension Mother Glaucoma Diabetes mellitus Hypertension Brother Hypertension Sister Arthritis Family history of problems with anesthesia: No Surgical History Surgical History H/O thyroidectomy History of sleeve gastrectomy Hx of cholecystectomy Hx of esophagogastroduodenoscopy Hx of hernia repair S/P panniculectomy History of Problems with Anesthesia: No Social History Social History Alcohol intake: never Patient Tobacco Use Status: Never used Tobacco Second Hand Smoke Exposure: No Use of substances other than those prescribed or required for medical reasons: No Are you DNR?: No Advance Directives: No Advance Directives Information Provided: Yes service: No Current occupational status: employed Meds Allergies Allergy/AdvReac Type Severity Reaction Status Date / Time No Known Allergies Allergy Verified 06/10/21 08:42 [No Known Allergies*] Active Medications: Current Medications Lactated Ringer's (Lr) 1,000 mls @ 80 mls/hr IVCONT .[id number] [facility] Home Medications Medication Instructions Recorded Confirmed Last Taken Type thiamine HCl (vitamin B1) 100 mg 100 mg PO DAILY 01/03/20 06/10/21 Unknown History tablet vitamin A 10,000 unit capsule 1 cap PO DAILY 01/03/20 06/10/21 Unknown History multivitamin 1 tab PO DAILY 07/19/20 06/10/21 Unknown History Exam Exam Date and Time: June 16, 2021 1410 Height,Weight and Vital Signs: Height 5 ft 4 in Weight 74.389 kg Last Vital Signs Temp 98.5 F 06/16/21 13:36 Pulse 65 06/16/21 13:36 Resp 18 06/16/21 13:36 BP 127/79 06/16/21 13:36 Pulse Ox 95 06/16/21 13:36 Airway Mallampati Class: III TM Dist: >3cm Neck ROM: Full Assessment and Plan Assessment Anesthesia Assessment: Anesthesia Plan Discussed and Chart Reviewed Final Anesthetic Review Family History of Problems with Anesthesia: No History of Problems with Anesthesia: No NPO: Yes ASA Class: III Final Preanesthetic Review: No Changes in Pt Med Stat, Meds/Allgs Chart Reviewed, Consent Obtained/Reviewed and Anes Risks/Benef Reviewed Patient Risk: Intermediate Procedure Risk: Low Anesthetic Plan Anesthetic Plan: MAC: Disposition: Standard PACU
--- NOTE | 2021-06-16 14:10 | PC.NURSE ---
pt states poor iv start due to raynauds and small veins. 2 rn's with 1 iv attempt each without success. Dr. Emmanuel with success #22 right neck. iv patent, pt tolerated well.
[2021-06-16] MEDS: Lactated Ringers 1,000 ML 80 ML IVCONT (14:12)
[2021-06-16 16:08] VITALS: BP 99/55; PULSE 80; RESP 17; TEMP 36.8; O2SAT 100
[2021-06-16 16:31] VITALS: BP 112/62; PULSE 52; RESP 18; O2SAT 100
[2021-06-16 16:59] VITALS: BP 125/76; PULSE 60; RESP 18; TEMP 36.6; O2SAT 100
== END 2021-06-16 17:39 | disposition home or self-care (01) ==
PROVIDERS: PCP Physician Assistant; Visit Provider Surgery
PROC: 0DJ08ZZ Inspection of Upper Intestinal Tract, Via Natural or Artificial Opening Endoscopic (ICD-10-PCS; CPT 43235; principal; 2021-06-16 15:10)
DX: K21.9 Gastro-esophageal reflux disease without esophagitis (principal); Z98.84 Bariatric surgery status; K29.50 Unspecified chronic gastritis without bleeding; B96.81 Helicobacter pylori [H. pylori] as the cause of diseases classified elsewhere; K20.80 Other esophagitis without bleeding; K44.9 Diaphragmatic hernia without obstruction or gangrene; E66.3 Overweight; Z68.29 Body mass index [BMI] 29.0-29.9, adult; E89.0 Postprocedural hypothyroidism; F41.1 Generalized anxiety disorder; Z85.850 Personal history of malignant neoplasm of thyroid; Z79.899 Other long term (current) drug therapy; Z90.49 Acquired absence of other specified parts of digestive tract; Z98.890 Other specified postprocedural states
CPT/HCPCS: 43239; 88305; 88342

== ENCOUNTER 2021-08-05 12:58 | Outpatient (REF) | payer OTHER, SELFPAY ==
--- NOTE | ~2021-08-05 | CT_ITS ---
EXAMINATION: CT CHEST WITHOUT CONTRAST CLINICAL INFORMATION: Gastroesophageal reflux disease. COMPARISON: Previous chest x-ray most recent April 2020. TECHNIQUE: Multidetector volumetric CT imaging of the chest was done. Axial MIP volume rendering provided. Sagittal and coronal reformatted images were obtained. This CT examination was performed using dose optimization techniques as appropriate, variously including the following: *Automated exposure control *Adjustment of mA and/or kV according to patient size (this includes techniques or standardized protocols for targeted exams where dose is matched to indication/reason for exam; i.e. extremities or head) *Use of iterative reconstruction technique DLP: 195 mGy-cm FINDINGS: LUNGS: There is a 3 mm peripheral right upper lobe nodule, axial image 179 series 7. There is a 4 mm peripheral right upper lobe nodule, axial image 187 series 7. There is a 3 mm peripheral or subpleural left lower lobe nodule, axial image 331 series 7. There is a 1 to 2 mm right lower lobe nodule, axial image 407 series 7. There is a 1 to 2 mm right lower lobe nodule, axial image 447 series 7. There is a 2 mm calcified left lower lobe nodule, axial image 403 series 7 and axial image 432 and axial image 456 series 7. There is scarring or subsegmental atelectasis in the right lower lobe laterally at the right lung base. MEDIASTINUM: There is oral contrast seen in the esophagus and stomach. No esophageal hernia is seen. There is increased soft tissue seen in the anterior superior mediastinum. This measures 2 x 4 cm. Hounsfield units without IV contrast measure 47, not compatible with a cyst. No other evidence of hilar or mediastinal lymphadenopathy. Normal heart size. Mild coronary artery calcification. No pericardial effusion. PLEURA: There is no pleural effusion. No pleural mass or thickening. AXILLA: No lymphadenopathy. UPPER ABDOMEN: Postsurgical changes from cholecystectomy and gastric sleeve. OSSEOUS STRUCTURES: There are mild degenerative changes of the spine. CT/CT chest wo con IMPRESSION: No esophageal hernia seen. 2 x 4 cm lesion in the anterior superior mediastinum. This is not compatible with a simple cyst. Differential would include a complex pericardial or bronchogenic cyst, thymic lesion or abnormal lymph node. Followup contrast-enhanced MRI to better differentiate this lesion is recommended. Small pulmonary nodules, largest measuring 4 mm. According to the UPDATED 2017 Fleischner Society recommendations, the advised followup imaging for less than 6 mm solid nodule: Low risk, no chest CT follow up and high risk, optional chest CT follow up in 1 year. Fleischner guidelines were followed.
[2021-08-05] MEDS: Barium Sulfate Oral (Vanilla) 450 ML ORAL.SUSP 900 ML PO (14:46)
== END 2021-08-05 12:59 | disposition home or self-care (01) ==
LOC: HO.CT 12:58
PROVIDERS: PCP Physician Assistant; Visit Provider Physician Assistant Surgical
DX: K21.9 Gastro-esophageal reflux disease without esophagitis (principal)
CPT/HCPCS: 71250

== ENCOUNTER 2024-05-12 12:50 | Outpatient (AMB) | payer OTHER, SELFPAY ==
--- NOTE | 2024-05-12 13:03 | A.OFFVIS_ITS ---
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 She is 6 years post sleeve gastrectomy performed 05/26/2018. She was last seen in the office on 06/10/2021 with a weight of 163.8 lb and a BMI of 29. Weight today is 162.2 lb with a BMI of 27.8. She has not been seen in the office in several years as she has been taking care of her mother who has dementia. Her father who is blind is also requiring a lot of help. She reports that over the last 1 year she has been having difficulty with certain foods causing abdominal discomfort nausea and vomiting. Specifically citrus products, tomato products, milk or ice cream. Meal plan: coffee noon or 1 sandwich or cookie chciken/fish and vegetables 16 oz water daily exercise plan: walking treadmill [facility] Medical History Headaches due to old head injury Anxiety Hypothyroidism Thyroid disease Hx of thyroid cancer Surgical History Hx of hernia repair H/O thyroidectomy Hx of esophagogastroduodenoscopy S/P panniculectomy History of sleeve gastrectomy Hx of cholecystectomy Family History Father Diabetes mellitus Glaucoma Hypertension Mother Glaucoma Diabetes mellitus Hypertension Brother Hypertension Sister Arthritis Social History Alcohol intake: never Comment: gas pain per pt Patient Tobacco Use Status: Never used Tobacco Second Hand Smoke Exposure: No service: No Current occupational status: employed Physical Exam Vital Signs: Last Vital Signs Temp 98.2 F 05/12/24 13:08 Pulse 72 05/12/24 13:08 BP 115/76 05/12/24 13:08 BMI result Body Mass Index 27.8 Const General: healthy appearing and no acute distress Resp Effort & Inspection: normal respiratory effort Auscultation: clear to auscultation bilaterally Cardio Rate: regular rate Rhythm: regular rhythm GI Auscultation: normal bowel sounds Extrem General: Yes normal to inspection Assessment & Plan Assessment & Plan (1) History of sleeve gastrectomy: Comment: 2019 Code(s): Z90.3 - Acquired absence of stomach [part of] Category: Surgical Plan: Check yearly postop labs. Change meal plan: Premier protein shake, ready to drink Half the container mixed with 4 oz of unsweetened almond milk Celebrate protein bar Another shake with half of the box mixed with 4 oz of unsweetened almond milk Meal with 5 forks protein and 4 forks vegetables No coffee, corn, oranges, tomatoes Increase water to 40 oz per day Increase exercise to daily with a goal of burning 300 calories per day. Return to clinic 6 weeks Orders: Orders Hemoglobin A1c Today E66.3 - Overweight, F41.9 - Anxiety disorder, unspecified, G44.309 - Post-traumatic headache, unspecified, not intractable, S09.90XS - Unspecified injury of head, sequela, Z87.19 - Personal history of other diseases of the digestive system, Z90.3 - Acquired absence of stomach [part of], Z98.890 - Other specified postprocedural states Zinc Today E66.3 - Overweight, F41.9 - Anxiety disorder, unspecified, G44.309 - Post-traumatic headache, unspecified, not intractable, S09.90XS - Unspecified injury of head, sequela, Z87.19 - Personal history of other diseases of the digestive system, Z90.3 - Acquired absence of stomach [part of], Z98.890 - Other specified postprocedural states Ferritin Today E66.3 - Overweight, F41.9 - Anxiety disorder, unspecified, G44.309 - Post-traumatic headache, unspecified, not intractable, S09.90XS - Unspecified injury of head, sequela, Z87.19 - Personal history of other diseases of the digestive system, Z90.3 - Acquired absence of stomach [part of], Z98.890 - Other specified postprocedural states Insulin Today E66.3 - Overweight, F41.9 - Anxiety disorder, unspecified, G44.309 - Post-traumatic headache, unspecified, not intractable, S09.90XS - Unspecified injury of head, sequela, Z87.19 - Personal history of other diseases of the digestive system, Z90.3 - Acquired absence of stomach [part of], Z98.890 - Other specified postprocedural states Complete Blood Count Auto Diff Today E66.3 - Overweight, F41.9 - Anxiety disorder, unspecified, G44.309 - Post-traumatic headache, unspecified, not intractable, S09.90XS - Unspecified injury of head, sequela, Z87.19 - Personal history of other diseases of the digestive system, Z90.3 - Acquired absence of stomach [part of], Z98.890 - Other specified postprocedural states Lipid Panel Today E66.3 - Overweight, F41.9 - Anxiety disorder, unspecified, G44.309 - Post-traumatic headache, unspecified, not intractable, S09.90XS - Unspecified injury of head, sequela, Z87.19 - Personal history of other diseases of the digestive system, Z90.3 - Acquired absence of stomach [part of], Z98.890 - Other specified postprocedural states IRON PROFILE Today E66.3 - Overweight, F41.9 - Anxiety disorder, unspecified, G44.309 - Post-traumatic headache, unspecified, not intractable, S09.90XS - Unspecified injury of head, sequela, Z87.19 - Personal history of other diseases of the digestive system, Z90.3 - Acquired absence of stomach [part of], Z98.890 - Other specified postprocedural states Comprehensive Met. Panel Today E66.3 - Overweight, F41.9 - Anxiety disorder, unspecified, G44.309 - Post-traumatic headache, unspecified, not intractable, S09.90XS - Unspecified injury of head, sequela, Z87.19 - Personal history of other diseases of the digestive system, Z90.3 - Acquired absence of stomach [part of], Z98.890 - Other specified postprocedural states Vitamin B12 and Folate Today E66.3 - Overweight, F41.9 - Anxiety disorder, unspecified, G44.309 - Post-traumatic headache, unspecified, not intractable, S09.90XS - Unspecified injury of head, sequela, Z87.19 - Personal history of other diseases of the digestive system, Z90.3 - Acquired absence of stomach [part of], Z98.890 - Other specified postprocedural states C Reactive Protein Today E66.3 - Overweight, F41.9 - Anxiety disorder, unspecified, G44.309 - Post-traumatic headache, unspecified, not intractable, S09.90XS - Unspecified injury of head, sequela, Z87.19 - Personal history of other diseases of the digestive system, Z90.3 - Acquired absence of stomach [part of], Z98.890 - Other specified postprocedural states Vitamin B1 Today E66.3 - Overweight, F41.9 - Anxiety disorder, unspecified, G44.309 - Post-traumatic headache, unspecified, not intractable, S09.90XS - Unspecified injury of head, sequela, Z87.19 - Personal history of other diseases of the digestive system, Z90.3 - Acquired absence of stomach [part of], Z98.890 - Other specified postprocedural states Vitamin A Today E66.3 - Overweight, F41.9 - Anxiety disorder, unspecified, G44.309 - Post-traumatic headache, unspecified, not intractable, S09.90XS - Unspecified injury of head, sequela, Z87.19 - Personal history of other diseases of the digestive system, Z90.3 - Acquired absence of stomach [part of], Z98.890 - Other specified postprocedural states TSH reflex Free T4 Today E66.3 - Overweight, F41.9 - Anxiety disorder, unspecified, G44.309 - Post-traumatic headache, unspecified, not intractable, S09.90XS - Unspecified injury of head, sequela, Z87.19 - Personal history of other diseases of the digestive system, Z90.3 - Acquired absence of stomach [part of], Z98.890 - Other specified postprocedural states Vitamin D 25-OH Total Today E66.3 - Overweight, F41.9 - Anxiety disorder, unspecified, G44.309 - Post-traumatic headache, unspecified, not intractable, S09.90XS - Unspecified injury of head, sequela, Z87.19 - Personal history of other diseases of the digestive system, Z90.3 - Acquired absence of stomach [part of], Z98.890 - Other specified postprocedural states
[2024-05-12 13:08] VITALS: BP 115/76; PULSE 72; TEMP 36.8; BMI 27.8
--- OUTSIDE RECORDS SUMMARY | 2024-05-12 14:40 | XMS_ITS | Clinical Summary ---
Author Organization [facility] Address [address] [id number] Care Team Providers Care Networking Technician Name Role Phone Luisa Chavira PA-C Primary Care Provider Source Comments PLEASE NOTE, if this patient is a minor, it may be UNLAWFUL to discuss sensitive information that is contained in these records (such as FAMILY PLANNING, MENTAL HEALTH or SUBSTANCE ABUSE) with the minor patient's parent or other person without the patient's specific authorization.[facility] Allergies Active Allergy Reactions Criticality Noted Date Comments Metformin 04/04/2015 GI upset Medications Miscellaneous Medical Supply miscIndications:Pl jensen fasciitis of right foot by miscellaneous route 1 to 2 (one to two) times daily. Dx: plantar fasciitis of R foot. Disp# one orthotic to R foot. No refills. 1 Each 0 11/08/19 16 Active fluoride, sodium, (CLINPRO 5000) 1.1 % psteIndications:Ca reynold involving multiple surfaces of tooth [place] twice a day every day for 2 minutes. Expectorate but do not rinse,eat or drink for 30 minutes after using this. 112 g 3 06/27/19 22 Active hydrOXYzine HCL (ATARAX) 25 mg tabletIndications: Anxiety,Sleep disorder Take 1 Tablet by mouth nightly at bedtime as needed for anxiety or sleep for up to 90 days 90 Tablet 03/04/19 23 Active glycerin-min oil-polycarbophil gelIndications:Jossue n in female genitalia on intercourse Place 1 application. vaginally once daily as needed (As needed for vaginal dryness) 35 g 1 04/24/19 23 Active ibuprofen 600 mg tabletIndications: Acute pain of right shoulder Take 1 Tablet by mouth 4 (four) times daily as needed for pain 30 Tablet 01/05/20 24 Active levothyroxine 200 mcg tabletIndications: Hx of thyroidectomy,Post operative hypothyroidism Take 1 Tablet by mouth every morning before breakfast 90 Tablet 1 01/09/20 24 Active Active Problems Problem Noted Date Diagnosed Date H. pylori infection 05/30/2018 Overview (05/30/2018): + breath test, 05/28/18 Class 3 severe obesity witho ut serious comorbidity with body mass index (BMI) of 40.0 to 44.9 in adult ([facility]) 01/19/2018 Overview (09/02/2018): Following up with Weight management treatment plan diet, exercise Goal weight lose 2.5 pounds a week Sees [facility] weight management. 01-17-18 Abnormal mammogram of right breast 11/11/2017 Overview (11/11/2017): U/S done on 08/20/17 of breast showed no significant change in size of a small oval mass within the skin at the 5 to 6:00 position of right breast. Possibly an epidermal inclusion cyst. Further management should be based on clinical findings. Hx of cholecystectomy 01/21/2017 Gastroesophageal reflux disease without esophagi tis 01/15/2017 Breast lump 03/11/2016 Seborrheic dermatitis of scalp 08/16/2015 Visit for gynecologic examination 12/09/2014 Overview (12/23/2014): 2014 Chla/ GC/HPV negative Hx of mammogram 06/03/2014 Overview (07/01/2016): - 2016 negative - [facility] 2014 negative Prediabetes 05/04/2014 Thyroid cancer ([facility]) 04/09/2014 Overview (05/04/2014): Seeing [facility] in [place], Dr. Phan next appt in 2014. Follow up US Depression with anxiety 04/09/2014 Overview (04/09/2014): Was seeing psych [facility] HTN (hypertension) 04/09/2014 Hx of thyroidectomy 04/09/2014 Overview (07/31/2014): US Q6 months, Hx of thyroid cancer, thyroidectomy, seeing [facility] in [place], had US 04/06 Tinea corporis 04/09/2014 Irregular menses 04/09/2014 Headache 04/09/2014 Resolved Problems Problem Noted Date Diagnosed Date Resolved Date Type 2 diabetes mellitus without complication 04/04/19 16 11/10/2015 Impacted cerumen of both ears 04/09/2014 09/27/2020 Immunizations Immunization Administration Dates Next Due Flu, Preservative Free 04/23/2022,11/11/2017,09/2016 Hep B, Adult/Adol (ENERGIX/RECOMBIVAX) 04/06/2018 INFLUENZA, SEASONAL, INJECTABLE 11/08/2015,10/19 PPD 03/29/2019, 9,03/10/2017,2015 Pfizer-BioNTCover Lockscreen COVID-19 Vac cine Bivalent, (MONTERO PFIZER-BIONTECH COVID-19 VACCINE BIVALENT, (MONTERO CAP 01/24/2022 TDAP 04/06/2018 ZOSTER VACCINE, RECOMBINANT (SHINGRIX) 06/23/2022,04/23/2022 Family History Medical History Relation Name Comments Depression Father Diabetes Father Vision Problems Father glaucoma, bl ind Depression Mother Diabetes Mother Hypertension Mother Thyroid Disease Mother hypothyroidi sm Cancer Sister breast cancer Relation Name Status Comments Father Alive Mother Alive Sister Social History Tobacco Use Types Packs/Day Years Used Date Smoking Tobacco: Never Smokeless Tobacco: Former Tobacco Cessation:Counseling Given: Yes Alcohol Use Standard Drinks/Week Comments No 0 (1 standard drink = 0.6 oz pur e alcohol) Social Connections Answer Date Recorded Connectedness 0 10/28/2023 Financial Resource Strain Answer Date R ecorded Financial Resource Strain 0 2018 Stress Answer Date Recorded Stress 0 10/02/2018 Physical Activity Answer Date Recorded Physical Activity 0 10/02/2018 Food Insecurity Answer Date Recorded Food 0 11/04/2023 Transportation Needs Answer Date Record ed Transportation 0 10/02/2018 Housing Stability Answer Date Recorded Housing 0 10/02/2018 Safety and Environment Answer Date Leno rded Safety 0 10/02/2018 Utilities Answer Date Recorded Utilities 0 10/02/2018 Employment Answer Date Recorded Stress 0 10/28/2023 Comments No Sex and Gender Information Value Date Recorded Sex Assigned at Female 07/18/2018 1:53 PM PDT Legal Sex Female 6:27 AM PDT Gender Identity Female 07/18/2018 1:53 PM PDT Sexual Orientation Straight 07/18/2018 1: 53 PM PDT 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 Not on file Not on file Last Filed Vital Signs Vital Sign Reading Time Taken Comments Blood Pressure 122/70 01/05/2024 11:23 AM EST Pulse 60 01/05/2024 11:23 AM EST Temperature 37 ??C (98.6 ??F) 01/05/2024 11:23 AM EST Respiratory Rate 16 01/05/2024 11:23 AM EST Oxygen Saturation 100% 05/22/2022 9:17 AM EDT Inhaled Oxygen Concentration - - Weight 77.2 kg (170 lb 1.6 oz) 01/05/2024 11:23 AM EST Height 167.6 cm (5' 6 ) 02/11/2018 8:41 AM EST Body Mass Index 27.45 02/11/2018 8:41 AM EST Plan of Treatment Health Maintenance Due Date Last Done Comments Anxiety Screening 1969 HPV Screening 1969 Pap + HPV 1969 CT Colonography 2014 Colonoscopy 2014 Flexible Sigmoidoscopy 2014 Imm-Hepatitis B (2 of 3 - 19 + 3-dose series) 05/04/2018 04/06/2018 Cervical Cancer Screening 05/12/2021 Pap Smear 05/12/2021 05/12/2018 Breast Cancer Screening (Mammogram) 03/11/2022 03/11/2021, 02/04/2021, 06/08/2017, Additional history exists Dental BW 01/01/2023 12/30/2021, 06/26/2021 Dental Examination 01/01/2023 12/30/2021, 06/26/2021 Dental Perio Charting 01/01/2023 12/30/2021, 022 Dental Prophy 01/01/2023 12/30/2021, 06/26/2021 Annual Preventive Care Visit 04/24/2023, 05/12/2018, 02/11/2018, Additional history exists FIT/gFOBT 05/04/2023 05/03/2022 [id number] ( season) 2023 022 Imm-Influenza (#1) 2023 04/23/2022, 1 , 01/15/2017, Additional history exists Alcohol and Drug Screen 02/09/2024 01/05/20 24, 04/23/2022, 11/05/2020, Additional history exists Depression Monitoring 04/06/2024 01/05/2024 , 03/04/2022, 11/05/2020, Additional history exists Diabetes Screening 01/04/2025 01/05/2024, 0 04/23/2022, 03/06/2022, Additional history exists Tobacco Screening 01/04/2025 01/05/2024 Colorectal Cancer Screening 05/03/2025 Fecal DNA 05/03/2025 05/03/2022 Dental FMX/Pano 06/28/2026 06/26/2021 Lipid Screening 01/04/2027 01/05/2024, 02/09, 01/07/2021, Additional history exists Imm-DTaP/Tdap/Td (2 - Td or Tdap) 04/06/2028 019 HIV Screening Completed 11/01/2014 Hepatitis C Screening Completed 04/23/2022 , 04/23/2022, 04/15/2015, Additional history exists Imm-Zoster, Recombinant Completed 06/23/2022, 04/23 Cervical Ablation/Cold-Knife Conization Discontinued Cervical Cryotherapy Discontinued Colposcopy Discontinued Endometrial Biopsy Discontinued Excision/Leep Discontinued HPV Genotyping Discontinued Vaginal Pap Discontinued Vulvoscopy Discontinued Procedures Procedure Name Priority Date/Time Associated Diagnosis Comments COMPREHENSIVE METABOLIC PANEL Routine 01/05/2024 12:00 PM EST Elevated liver enzymes LIPIDS W RFLX TO DIRECT LDL Routine 01/05/2024 12:00 PM EST Elevated liver enzymes Prediabetes COLOGUARD Routine 05/03/2022 3:00 AM EDT Screening for colon cancer ACUTE HEPATITIS PANEL W/RFLX Routine 04/23/2022 11:18 AM EDT Elevated liver enzymes COMP PERIODONTAL EVALUATION - NEW/EST PATIENT Routine 12/30/2021 10:20 AM EST Caries of dentin BITEWINGS - FOUR RADIOGRAPHIC IMAGES Routine 12/30/2021 10:20 AM EST Caries of dentin PROPHYLAXIS - ADULT Routine 12/30/2021 1 0:20 AM EST Caries of dentin PERIODIC ORAL EVALUATION ESTABLISHED PATIENT Routine 12/30/2021 10:20 AM EST Caries of dentin INTRAORAL - COMP SERIES OF RADIOGRAPHIC IMAGES Routine 06/26/2021 10:20 AM EDT Periodontitis REFERRAL FOR MAMMOGRAM Routine 03/11/2021 4:37 PM EST Encounter for screening mammogram for malignant neoplasm of breast PAP, LIQUID BASED Routine 05/12/2018 1:0 0 PM EDT Encounter for gynecological examination without abnormal finding ANTIBODY HIV-1&HIV-2 SINGLE RESULT Routine 11/01/2014 2:59 PM EDT Screen for STD (sexually transmitted disease) from Last 3 Months or Most Recently Relevant to Health Maintenance Results * (ABNORMAL) LIPIDS W RFLX TO DIRECT LDL (01/05/2024 12:00 PM EST) CHOLESTEROL, TOTAL 184 <200 mg/dL [facility] HDL CHOLESTEROL 53 > OR = 50 mg/dL [facility] TRIGLYCERIDES 78 <150 mg/dL [facility] LDL-CHOLESTEROL 114(H) 99 mg/dL (calc) [facility] Comment: Reference range: <100 Desirable range <100 mg/dL for primary prevention; ?? <70 mg/dL for patients with CHD or diabetic patients with > or = 2 CHD risk factors. LDL-C is now calculated using the Jesus-Scar calculation, which is a validated novel method providing better accuracy than the Friedewald equation in the estimation of LDL-C. Jesus SS et al. KRUNAL. 2013;310(19): 5614-8341 (http://education.JumpLinc/faq/UGY220) CHOL/HDLC RATIO 3.5 <5.0 (calc) [facility] NON-HDL CHOLESTEROL 131(H) <130 mg/dL (calc) [facility] Comment: For patients with diabetes plus 1 major ASCVD risk factor, treating to a non-HDL-C goal of <100 mg/dL (LDL-C of <70 mg/dL) is considered a therapeutic option. Blood Blood / Unknown 01/05/2024 1 2:00 PM EST 01/05/2024 12:01 PM EST Narrative [facility] - 01/06/2024 6:14 AM EST FASTING:NO us Luisa Chavira PA-C LAB - BLOOD DRAW Final Resul t [facility] [employer] [address] [address], [facility] [address] [place] [address] * (ABNORMAL) COMPREHENSIVE METABOLIC PANEL (01/05/2024 12:00 PM EST) GLUCOSE 85 65 - 139 mg/dL [facility] Comment: ?Non-fasting reference interval UREA NITROGEN (BUN) 12 7 - 25 mg/dL [facility] CREATININE (blood) 0.77 0.50 - 1.03 mg/dL [facility] EGFR 92 > OR = 60 mL/min/1. 73m2 [facility] BUN/CREATININE RATIO SEE NOTE: [facility] Comment: ?? Not Reported: BUN and Creatinine are within ?? reference range. ? SODIUM 133(L) 135 - 146 mmol/L [facility] POTASSIUM 4.7 3.5 - 5.3 mmol/L [facility] CHLORIDE 100 98 - 110 mmol/L [facility] CARBON DIOXIDE 28 20 - 32 mmol/L [facility] CALCIUM 9.2 8.6 - 10.4 mg/dL [facility] PROTEIN, TOTAL 9.0(H) 6.1 - 8.1 g/dL [facility] ALBUMIN 4.1 3.6 - 5.1 g/dL [facility] GLOBULIN 4.9(H) 1.9 - 3.7 g/dL (calc) [facility] ALBUMIN/GLOBULI N RATIO 0.8(L) 1.0 - 2.5 (calc) [facility] BILIRUBIN, TOTAL 0.7 0.2 - 1.2 mg/dL [facility] ALKALINE PHOSPHATASE 43 37 - 153 U/L [facility] AST 24 10 - 35 U/L [facility] ALT 18 6 - 29 U/L [facility] Blood Blood / Unknown 01/05/2024 1 2:00 PM EST 01/05/2024 12:01 PM EST Narrative [facility] - 01/06/2024 6:14 AM EST FASTING:NO Luisa Chavira PA-C LAB - BLOOD DRAW Edited Resu lt - Final Performing Organization Address City/[facility]/ZIP Co de Phone Number [facility] [address] [address], [facility] [address] [address] * [facility] (05/03/2022 3:00 AM EDT) Stool Stool specimen / Unknown 05/03/2022 3:00 AM EDT Benitez Awad MD LAB - NO BLOOD DRAW Edited Resul t - Final [employer] [address] [place] [address], [address] [id number] [place] [id number], * (ABNORMAL) ACUTE HEPATITIS PANEL W/RFLX (04/23/2022 11:18 AM EDT) HEPATITIS A IGM ANTIBODY NON-REACT JESSE NON-REACT JESSE [facility] COMMENT [facility] HEPATITIS B SURFACE ANTIGEN NON-REACT JESSE NON-REACT JESSE [facility] HEPATITIS B CORE IGM ANTIBODY NON-REACT JESSE NON-REACT JESSE [facility] HEPATITIS C ANTIBODY REACTIVE( A) NON-REACT JESSE [facility] SIGNAL TO CUT-OFF 8.76(H) <1.00 QU EST [facility] Comment: Based on this result, the sample will be tested for HCV RNA by a Nucleic Acid Amplification Test (NAAT) to determine if the patient has a current active infection. Blood Blood / Unknown 04/23/2022 1 1:18 AM EDT 04/23/2022 11:19 AM EDT Narrative [facility] - 04/25/2022 1:49 PM EDT AN UPDATE OR CORRECTION HAS BEEN MADE TO NAME For additional information, please refer to http://education.[employer].Play Megaphone/faq/TDK993 (This link is being provided for informational/ educational purposes only.) Luisa Chavira PA-C LAB - BLOOD DRAW Final Resul t Performing Organization Address City/[facility] Co de Phone Number [facility] [address] [address], [facility] [address] [place] [address] * REFERRAL FOR MAMMOGRAM (03/11/2021 4:37 PM EST) Luisa Chavira PA-C IMG RFL MAMMO Final Result * PAP, LIQUID BASED (05/12/2018 1:00 PM EDT) Pathologist [facility] PAP normal NORMAL - ABNORMAL [facility] Specimen from uterine cervix (specimen) Cervix uteri structure / Unknown 05/12/2018 1:00 PM EDT Impressions [facility] - 05/18/2018 2:39 PM EDT Negative for squamous intraepithelial lesion and malignancy. HPV negative. Abundant RBCs present. James SCHERER LAB - NO BLOOD DRAW Final Result Performing Organization Address City/[facility] Co de Phone Number [facility] [address] [place] [address], * HIV-1 & HIV-2 ANTIBODIES (11/01/2014 2:59 PM EDT) HIV 1 AND 2 ANTIBODY SCREEN NEGATIVE NEGATIVE [facility] Comment: Effective 10/16/14, [employer] has replaced the HIV screening test with a 4th generation HIV Ag/Ab Combo assay. This assay allows for the simultaneous qualitative detection of HIV p24 antigen and antibodies to HIV type 1 (including group O) and type 2. The assay is intended to be used as an aid in the diagnosis of HIV infection in pediatric and adult populations, including women. ??The 4th generation assay allows for earlier detection of HIV infection by detecting the presence of the HIV-1 p24 antigen as well as the traditional antibodies. ??Use of a 4th generation assay is the current CDC recommendation for HIV screening. Blood specimen (specimen) Blood / Unknown 11/01/2014 2:59 PM EDT 11/01/2014 3:32 PM EDT [facility] - 11/01/2014 8:24 PM EDT [facility] [address] [place] [address] PT ID [id number] ORD# [id number] Nevaeh Mulligan NP LAB - BLOOD DRAW Final Result [facility] [address] [place] [address], from Last 3 Months or Most Recently Relevant to Health Maintenance Insurance [employer] Member Subscriber Plan / Payer (Ef fective 2020-Present) Name:Reed Justin No Relation to Subscriber:Self Name:Reed Harvey No Payer ID:[id number] Type:[employer] Address: [facility] [address] [place] [address] [facility] Care Teams Networking Technician Relationship Specialty Start Date End Date Luisa Chavira PA-C [address] [place] [address] PCP - General Internal Medicine 12/04/20
== END 2024-05-12 13:40 | disposition home or self-care (01) ==
LOC: HO.HBS 12:50
PROVIDERS: PCP Physician Assistant; Visit Provider Physician Assistant Surgical
DX: E66.811 Obesity, class 1 (principal); Z68.31 Body mass index [BMI] 31.0-31.9, adult; Z90.3 Acquired absence of stomach [part of]; Z98.84 Bariatric surgery status
CPT/HCPCS: 99213

== ENCOUNTER 2024-05-12 12:50 | Outpatient (REF) | payer OTHER, SELFPAY ==
[2024-05-12 14:10] LABS: MANUAL DIFF FLAG NO
[2024-05-12 14:33] LABS: Basophils Absolute Auto 0.1 X10*3/uL (0.0-0.2); Basophils Percent Auto 1.5 % (0-2); Eosinophils Percent Auto 0.7 % (0-4); Hematocrit 39.6 % (37.0-47.0); Hemoglobin 12.8 g/dl (12.0-16.0); Lymphocytes Absolute Auto 1.2 X10*3/uL (1.2-4.9); Lymphocytes Percent Auto 28.3 % (20-40); Mean Corpuscular HGB Conc 32.3 g/dl (31.0-35.0); Mean Corpuscular Hemoglobin 30.3 pg (27.0-33.0); Mean Corpuscular Volume 93.8 fL (80.0-98.0); Mean Platelet Volume 10.4 fL (9.4-12.3); Monocytes Absolute Auto 0.4 X10*3/uL (0.1-1.2); Monocytes Percent Auto 10.3 % (2-11); Neutrophils Absolute Auto 2.4 x10*3/uL (2.0-8.3); Neutrophils Percent Auto 59.2 % (45-73); Platelet Count 195 X10*3/uL (160-400); Red Blood Count 4.22 X10*6/uL (4.20-5.50); Red Cell Distribution Width 13.1 % (11.0-16.0); White Blood Count 4.1 X10*3/uL (4.8-10.8)
[2024-05-12 14:38] LABS: Estimated Average Glucose 103 mg/dL; Hemoglobin A1C 114.7933 umol/L; Hemoglobin A1c % 5.2 % (<6.0); Total Hemoglobin (HGBA1C) 3432.2025 umol/L
[2024-05-12 15:27] LABS: Alanine Aminotransferase 19 U/L (0-31); Albumin Level 3.9 g/dL (3.5-5.0); Alkaline Phosphatase 44 U/L (39-117); Anion Gap 8 (12-20); Aspartate Amino Transferase 34 U/L (5-31); Bilirubin Total 0.9 mg/dL (0.0-1.0); Blood Urea Nitrogen 10 mg/dL (9-16); C Reactive Protein < 0.04 mg/dL (< or = 0.50); Calcium 9.3 mg/dL (8.4-10.2); Carbon Dioxide 28 mmol/L (22-29); Chloride 108 mmol/L (96-108); Cholesterol 163 mg/dL (<200); Estimated Glomerular Filt Rate > 60; Glucose Random 85 mg/dL (60-115); HDL Cholesterol 46 mg/dL (>40); Iron 91 mcg/dL (30-160); LDL Cholesterol Calculated 99 mg/dL (<100); Percent Iron Saturation 34 % (15-50); Potassium 4.1 mmol/L (3.3-5.1); Sodium 140 mmol/L (135-145); Total Iron Binding Capacity 265 mcg/dL (228-428); Total Protein 8.9 g/dL (6.5-8.0); Triglycerides 92 mg/dL (<150); Unsaturated Iron Binding 174 ug/dL
--- OUTSIDE RECORDS SUMMARY | 2024-05-12 15:31 | XMS_ITS | Clinical Summary ---
Author Organization [facility] Address [address] [place] [address] Care Team Providers Care Kennel Aide Name Role Phone Luisa Chavira PA-C Primary [...] psteIndications:Ca reynold involving multiple surfaces of tooth [place] twice a day every day for 2 [...] (BMI) of 40.0 to 44.9 in adult ([facility]) 01/19/2018 Overview (09/02/2018): Following up with Weight management treatment plan diet, exercise Goal weight lose 2.5 pounds a week Sees [facility] weight management. 01-17-18 Abnormal mammogram of right [...] [facility] 2014 negative Prediabetes 05/04/2014 Thyroid cancer ([facility]) 04/09/2014 Overview (05/04/2014): Seeing denise [facility] in [place], Dr. Phan next appt in 2014. Follow up US Depression with anxiety 04/09/2014 Overview (04/09/2014): Was seeing psych [facility] HTN (hypertension) 04/09/2014 Hx of thyroidectomy 04/09/2014 Overview (07/31/2014): US Q6 months, Hx of thyroid cancer, thyroidectomy, seeing [facility] in [place], had US 04/06 Tinea corporis 04/09/2014 Irregular menses 04/09/2014 Headache 04/09/2014 Resolved Problems Problem Noted Date Diagnosed Date Resolved Date Type 2 diabetes mellitus without complication 04/04/19 16 11/10/2015 Impacted cerumen of both ears 04/09/2014 09/27/2020 Immunizations Immunization Administration Dates Next Due Flu, Preservative Free 04/23/2022,11/11/2017,09/2016 Hep B, Adult/Adol (ENERGIX/RECOMBIVAX) 04/06/2018 INFLUENZA, SEASONAL, INJECTABLE 11/08/2015,10/19 PPD 03/29/2019, 9,03/10/2017,2015 Pfizer-BioNTThe [employer] COVID-19 Vac cine Bivalent, (MONTERO PFIZER-BIONTECH COVID-19 [...] 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 Comment: Reference range: <100 Desirable range <100 mg/dL for primary prevention; ?? <70 mg/dL for patients with CHD or diabetic patients with > or = 2 CHD risk factors. LDL-C is now calculated using the Jesus-Scar calculation, which is a validated novel method providing better accuracy than the Friedewald equation in the estimation of LDL-C. Jesus SS et al. KRUNAL. 2013;310(19): 5625-9472 (http://education.MSA Management/faq/MXA022) CHOL/HDLC RATIO 3.5 <5.0 (calc) [facility] NON-HDL CHOLESTEROL 131(H) <130 mg/dL (calc) [facility] Comment: For patients with diabetes plus 1 major ASCVD risk factor, treating to a non-HDL-C goal of <100 mg/dL (LDL-C of <70 mg/dL) is considered a therapeutic option. Blood Blood / Unknown 01/05/2024 1 2:00 PM EST 01/05/2024 12:01 PM EST Narrative [facility] - 01/06/2024 6:14 AM EST FASTING:NO us Luisa Chavira PA-C LAB - BLOOD DRAW Final Resul t [facility] [place] [employer] [address] [address], [facility] [address] [place] [address] * (ABNORMAL) COMPREHENSIVE METABOLIC PANEL (01/05/2024 12:00 PM EST) GLUCOSE 85 65 - 139 mg/dL [facility] Comment: ?Non-fasting reference interval UREA NITROGEN (BUN) 12 7 - 25 mg/dL [facility] CREATININE (blood) 0.77 0.50 - 1.03 mg/dL [facility] EGFR 92 > OR = 60 mL/min/1. 73m2 [facility] BUN/CREATININE RATIO SEE NOTE: [facility] Comment: ?? Not Reported: BUN and Creatinine are within ?? reference range. ? SODIUM 133(L) 135 - 146 mmol/L [facility] POTASSIUM 4.7 3.5 - 5.3 mmol/L [facility] CHLORIDE 100 98 - 110 mmol/L [facility] CARBON DIOXIDE 28 20 - 32 mmol/L [facility] CALCIUM 9.2 8.6 - 10.4 mg/dL [facility] PROTEIN, TOTAL 9.0(H) 6.1 - 8.1 g/dL [facility] ALBUMIN 4.1 3.6 - 5.1 g/dL [facility] GLOBULIN 4.9(H) 1.9 - 3.7 g/dL (calc) [facility] ALBUMIN/GLOBULI N RATIO 0.8(L) 1.0 - 2.5 (calc) [facility] BILIRUBIN, TOTAL 0.7 0.2 - 1.2 mg/dL [facility] ALKALINE PHOSPHATASE 43 37 - 153 U/L [facility] AST 24 10 - 35 U/L [facility] ALT 18 6 - 29 U/L [facility] Blood Blood / Unknown 01/05/2024 1 2:00 PM EST 01/05/2024 12:01 PM EST Narrative [facility] - 01/06/2024 6:14 AM EST FASTING:NO Luisa Chavira PA-C LAB - BLOOD DRAW Edited Resu lt - Final Performing Organization Address City/[facility]/ZIP Co de Phone Number [facility] [address] [address], [facility] [address] [address] * [facility] (05/03/2022 3:00 AM EDT) Stool Stool specimen / Unknown 05/03/2022 3:00 AM EDT Benitez Awad MD LAB - NO BLOOD DRAW Edited Resul t - Final [employer] [address] [place] [address], [address] [id number] [place] [id number], * (ABNORMAL) ACUTE HEPATITIS PANEL W/RFLX (04/23/2022 11:18 AM EDT) HEPATITIS A IGM ANTIBODY NON-REACT JESSE NON-REACT JESSE [facility] COMMENT [facility] HEPATITIS B SURFACE ANTIGEN NON-REACT JESSE NON-REACT JESSE [facility] HEPATITIS B CORE IGM ANTIBODY NON-REACT JESSE NON-REACT JESSE [facility] HEPATITIS C ANTIBODY REACTIVE( A) NON-REACT JESSE [facility] SIGNAL TO CUT-OFF 8.76(H) <1.00 QU EST [facility] Comment: Based on this result, the sample will be tested for HCV RNA by a Nucleic Acid Amplification Test (NAAT) to determine if the patient has a current active infection. Blood Blood / Unknown 04/23/2022 1 1:18 AM EDT 04/23/2022 11:19 AM EDT Narrative [facility] - 04/25/2022 1:49 PM EDT AN UPDATE OR CORRECTION HAS BEEN MADE TO NAME For additional information, please refer to http://education.Gainsight.Mis Descuentos/faq/GKZ500 (This link is being provided for informational/ educational purposes only.) Luisa Chavira PA-C LAB - BLOOD DRAW Final Resul t Performing Organization Address City/[facility] Co de Phone Number [facility] [address] [address], [facility] [address] [place] [address] * REFERRAL FOR MAMMOGRAM (03/11/2021 4:37 PM EST) Luisa Chavira PA-C IMG RFL MAMMO Final Result * PAP, LIQUID BASED (05/12/2018 1:00 PM EDT) Pathologist [facility] PAP normal NORMAL - ABNORMAL [facility] Specimen from uterine cervix (specimen) Cervix uteri structure / Unknown 05/12/2018 1:00 PM EDT Impressions [facility] - 05/18/2018 2:39 PM EDT Negative for squamous intraepithelial lesion and malignancy. HPV negative. Abundant RBCs present. James SCHERER LAB - NO BLOOD DRAW Final Result Performing Organization Address City/[facility] Co de Phone Number [facility] [address] [place] [address], * HIV-1 & HIV-2 ANTIBODIES (11/01/2014 2:59 PM EDT) HIV 1 AND 2 ANTIBODY SCREEN NEGATIVE NEGATIVE 20/20 [facility] Comment: Effective 10/16/14, [facility] has replaced the HIV screening test with [...] 2:59 PM EDT 11/01/2014 3:32 PM EDT [facility] 20/20 [facility] [employer] - 11/01/2014 8:24 PM EDT [facility] [address] [place] [address] PT ID [id number] ORD# [id number] Nevaeh Mulligan NP LAB - BLOOD DRAW Final Result [facility] [address] [place] [address], from Last 3 Months or Most Recently Relevant to Health Maintenance Insurance in[employer] Member Subscriber Plan / Payer (Ef fective 2020-Present) Name:Reed Justin No Relation to Subscriber:Self Name:Reed Harvey No Payer ID:[id number] Type:Whodini Address: [facility] [address] [place] [address] [facility] Care Teams Kennel Aide Relationship Specialty Start Date End Date Luisa Chavira PA-C [address] [place] [address] PCP - General Internal Medicine 12/04/20
[2024-05-12 15:35] LABS: Folate 15.6 ng/mL (> or = 4.0); Vitamin B12 737 pg/mL (200-900)
[2024-05-12 15:45] LABS: Ferritin 63 ng/mL (10-250); Vitamin D 25-OH Total 16.8 ng/mL (>30)
[2024-05-12 15:55] LABS: Insulin 6 uU/mL (2-29)
[2024-05-12 16:35] LABS: Free T4 (Free Thyroxine) 1.18 ng/dL (0.71-1.85)
[2024-05-16 01:28] LABS: Zinc 51 mcg/dL (60-130)
[2024-05-16 20:14] LABS: Vitamin A 33 mcg/dL (38-98)
[2024-05-21 08:38] LABS: Vitamin B1 10 nmol/L (8-30)
== END 2024-05-12 12:51 | disposition home or self-care (01) ==
LOC: HO.LAB 12:50
PROVIDERS: PCP Physician Assistant; Visit Provider Physician Assistant Surgical
DX: E66.3 Overweight (principal); G44.309 Post-traumatic headache, unspecified, not intractable; S09.90XS Unspecified injury of head, sequela; F41.9 Anxiety disorder, unspecified; Z68.27 Body mass index [BMI] 27.0-27.9, adult; Z87.19 Personal history of other diseases of the digestive system; Z98.890 Other specified postprocedural states; Z90.3 Acquired absence of stomach [part of]
CPT/HCPCS: 36415; 80053; 80061; 82306; 82607; 82728; 82746; 83036; 83525; 83540; 84425; 84439; 84443; 84590; 84630; 85025; 86140; 99212

== ENCOUNTER → 2024-05-31 09:25 | Outpatient (BNVA) | payer OTHER, SELFPAY | PROVIDERS: PCP Physician Assistant; Visit Provider Counselor Mental Health ==

== ENCOUNTER 2024-06-19 11:08 | Outpatient (AMB) | payer OTHER, SELFPAY ==
--- NOTE | 2024-06-19 11:27 | MHC.OFFVISWM ---
VS Expanded 06/19/24 11:30 BP 121/78 Blood Pressure Location Rt brachial Blood Pressure Position Sitting Pulse 60 Pulse Source Pulse Oximeter Temp 97.5 F Temperature Source Temporal Artery Scan Pulse Oximetry 98 Oxygen Delivery Method Room Air Height 5 ft 4 in Weight 156 lb 6.4 oz BMI 26.8 Body Fat % 29.9 Body Fat Mass 46.8 Fat Free Mass 109.6 Visceral Fat Rating 7.0 Body Water % 49.6 Body Water Mass 77.6 Muscle Mass/Score 104.0 Basal Metabolic Rate/Score 1,463 Intake Visit Reasons: (OV) LSG 05/26/18 Sql Database Administrator Required: No Allergies No Known Allergies [No Known Allergies*] Allergy (Verified 06/19/24 11:28) Medication List - Last Reconciled 06/19/24 by NIESHA May cholecalciferol (vitamin D3) 125 mcg PO DAILY 90 days levothyroxine 200 mcg PO DAILY multivitamin 1 tab PO DAILY sennosides (senna) 17.2 mg (2 x 8.6 mg) PO BEDTIME 90 days vitamin A palmitate 3,000 mcg PO DAILY zinc gluconate 30 mg PO DAILY 90 days HPI Comments Details: Patient is a 53-year-old female who returns to the office today in follow-up. She is 6 years 1 month post sleeve gastrectomy performed 05/26/2018. She was last seen in the office approximately a month ago with a weight of 162.2 lb and a BMI of 27.8. Weight today is 156.4 lb with a BMI of 26.8. She has not been seen in the office in several years as she has been taking care of her mother who has dementia. Her father who is blind is also requiring a lot of help. She reports that overall, she is doing very well. She does report that she is having reflux in the evening when she goes to lay down at night. She also reports feeling as though her stomach is quite full after supper. She reports no significant reflux with the protein shakes or protein bar. Meal plan: wakes at 7 am bed at 8 pm Premier protein shake, ready to drink Half the container mixed with 4 oz of unsweetened almond milk, 8-10 am Celebrate protein bar, 12-2 pm Another shake with half of the box mixed with 4 oz of unsweetened almond milk, 2-4 pm Meal with 5 forks protein and 4 forks vegetables, 4 pm Increase water to 32 oz per day exercise plan: walking treadmill 30 min, 2-3 days per week PFSH Medical History Headaches due to old head injury Anxiety Hypothyroidism Thyroid disease Hx of thyroid cancer Surgical History Hx of hernia repair H/O thyroidectomy Hx of esophagogastroduodenoscopy S/P panniculectomy History of sleeve gastrectomy Hx of cholecystectomy Family History Father Diabetes mellitus Glaucoma Hypertension Mother Glaucoma Diabetes mellitus Hypertension Brother Hypertension Sister Arthritis Social History Alcohol intake: never Comment: gas pain per pt Patient Tobacco Use Status: Never used Tobacco Second Hand Smoke Exposure: No service: No Current occupational status: employed Physical Exam Const General: healthy appearing and no acute distress Resp Effort & Inspection: normal respiratory effort Auscultation: clear to auscultation bilaterally Cardio Rate: regular rate Rhythm: regular rhythm GI Auscultation: normal bowel sounds Extrem General: Yes normal to inspection Assessment & Plan Assessment & Plan (1) History of sleeve gastrectomy: Comment: 2019 Code(s): Z90.3 - Acquired absence of stomach [part of] Category: Surgical Plan: wakes at 7 am bed at 8 pm Premier protein shake, ready to drink Half the container mixed with 4 oz of unsweetened almond milk, 8-10 am meal with 5 forks protein and 5 forks veg, 12-2 pm Another shake with half of the box mixed with 4 oz of unsweetened almond milk, 3-5 pm Encouraged to increase exercise to 5 days per week. We will have her return to the office in approximately 6 weeks. Encouraged to send weight is weekly and text with any questions or concerns. (2) Constipation: Code(s): K59.00 - Constipation, unspecified Category: Medical Plan: Discussed the direct correlation of water intake and bowel movements. We will add senna 2 tabs at HS. Medications: New sennosides (senna) 17.2 mg (2 x 8.6 mg) PO BEDTIME 180 tabs 0RF constipation 90 days
[2024-06-19 11:30] VITALS: BP 121/78; PULSE 60; TEMP 36.4; O2SAT 98; BMI 26.8
--- OUTSIDE RECORDS SUMMARY | 2024-06-19 12:03 | XMS_ITS | Clinical Summary ---
Author Organization [facility] Address [address] [place] [address] Care Team Providers Care Aircraft Cabin Cleaner Name Role Phone Luisa Chavira PA-C Primary Care Provider + [phone] Source Comments PLEASE NOTE, if this patient [...] psteIndications:Ca reynold involving multiple surfaces of tooth [place] twice a day every day for 2 [...] (BMI) of 40.0 to 44.9 in adult ([facility]) 01/19/2018 Overview (09/02/2018): Following up with Weight management treatment plan diet, exercise Goal weight lose 2.5 pounds a week Sees [facility] weight management. 01-17-18 Abnormal mammogram of right [...] [facility] 2014 negative Prediabetes 05/04/2014 Thyroid cancer ([facility]) 04/09/2014 Overview (05/04/2014): Seeing Tamika [facility] in [place], Dr. Phan next appt in 2014. Follow up US Depression with anxiety 04/09/2014 Overview (04/09/2014): Was seeing psych [facility] HTN (hypertension) 04/09/2014 Hx of thyroidectomy 04/09/2014 Overview (07/31/2014): US Q6 months, Hx of thyroid cancer, thyroidectomy, seeing [facility] in [place], had US 04/06 Tinea corporis 04/09/2014 Irregular menses 04/09/2014 Headache 04/09/2014 Resolved Problems Problem Noted Date Diagnosed Date Resolved Date Type 2 diabetes mellitus without complication 04/04/19 16 11/10/2015 Impacted cerumen of both ears 04/09/2014 09/27/2020 Immunizations Immunization Administration Dates Next Due Flu, Preservative Free 04/23/2022,11/11/2017,09/2016 Hep B, Adult/Adol (ENERGIX/RECOMBIVAX) 04/06/2018 INFLUENZA, SEASONAL, INJECTABLE 11/08/2015,10/19 PPD 03/29/2019, 9,03/10/2017,2015 Pfizer-BioNT[employer] COVID-19 Vac cine Bivalent, (MONTERO PFIZER-BIONTECH COVID-19 [...] 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 Not on file Not [...] 02/11/2018, Additional history exists FIT/gFOBT 05/04/2023 05/03/2022 [id number]-30 ( season) 2023 022 Imm-Influenza (#1) 2023 [...] Procedure Name Priority Date/Time Associated Diagnosis Comments REFERRAL SCANNED DOCUMENT 05/12/2024 3:00 AM EDT LAB SCANNED DOCUMENT 05/12/2024 3:00 AM EDT LAB SCANNED DOCUMENT 05/12/2024 3:00 AM EDT LAB SCANNED DOCUMENT 05/12/2024 3:00 AM EDT LAB SCANNED DOCUMENT 05/12/2024 3:00 AM EDT COMPREHENSIVE METABOLIC PANEL Routine 01/05/2024 12:00 PM [...] Recently Relevant to Health Maintenance Results * REFERRAL SCANNED DOCUMENT (05/12/2024 3:00 AM EDT) 05/12/2024 3:00 AM EDT Innotrievena PA-C SCAN REFERRAL Final Result * LAB SCANNED DOCUMENT (05/12/2024 3:00 AM EDT) Only the most recent of4 resultswithin the time period is included. 05/12/2024 3:00 AM EDT Luisa Chavira PA-C SCAN LAB Final Result * (ABNORMAL) LIPIDS W RFLX TO DIRECT LDL (01/05/2024 12:00 PM EST) CHOLESTEROL, TOTAL 184 <200 mg/dL [facility] HDL CHOLESTEROL 53 > OR = 50 mg/dL [facility] TRIGLYCERIDES 78 <150 mg/dL [facility] LDL-CHOLESTEROL 114(H) 99 mg/dL (calc) [facility] Comment: Reference range: <100 Desirable range <100 mg/dL for primary prevention; ?? <70 mg/dL for patients with CHD or diabetic patients with > or = 2 CHD risk factors. LDL-C is now calculated using the Charanjit calculation, which is a validated novel method providing better accuracy than the Friedewald equation in the estimation of LDL-C. Jesus SS et al. KRUNAL. 2013;310(19): 8102-5143 (http://education.Azendoo/faq/UON814) CHOL/HDLC RATIO 3.5 <5.0 (calc) [facility] NON-HDL CHOLESTEROL 131(H) <130 mg/dL (calc) [facility] Comment: For patients with diabetes plus 1 major ASCVD risk factor, treating to a non-HDL-C goal of <100 mg/dL (LDL-C of <70 mg/dL) is considered a therapeutic option. Blood Blood / Unknown 01/05/2024 1 2:00 PM EST 01/05/2024 12:01 PM EST Narrative [facility] - 01/06/2024 6:14 AM EST FASTING:NO us Luisa Chavira PA-C LAB - BLOOD DRAW Final Resul t [facility] [address] [place] [address], [employer] [address] [place] [address] * (ABNORMAL) COMPREHENSIVE METABOLIC PANEL (01/05/2024 12:00 PM EST) GLUCOSE 85 65 - 139 mg/dL [facility] Comment: ?Non-fasting reference interval UREA NITROGEN (BUN) 12 7 - 25 mg/dL [facility] CREATININE (blood) 0.77 0.50 - 1.03 mg/dL [facility] EGFR 92 > OR = 60 mL/min/1. 73m2 [facility] BUN/CREATININE RATIO SEE NOTE: [facility] Comment: ?? Not Reported: BUN and Creatinine are within ?? reference range. ? SODIUM 133(L) 135 - 146 mmol/L [facility] POTASSIUM 4.7 3.5 - 5.3 mmol/L [facility] CHLORIDE 100 98 - 110 mmol/L [facility] CARBON DIOXIDE 28 20 - 32 mmol/L [facility] CALCIUM 9.2 8.6 - 10.4 mg/dL [facility] PROTEIN, TOTAL 9.0(H) 6.1 - 8.1 g/dL [facility] ALBUMIN 4.1 3.6 - 5.1 g/dL [facility] GLOBULIN 4.9(H) 1.9 - 3.7 g/dL (calc) [facility] ALBUMIN/GLOBULI N RATIO 0.8(L) 1.0 - 2.5 (calc) [facility] BILIRUBIN, TOTAL 0.7 0.2 - 1.2 mg/dL [facility] ALKALINE PHOSPHATASE 43 37 - 153 U/L [facility] AST 24 10 - 35 U/L [facility] ALT 18 6 - 29 U/L [facility] Blood Blood / Unknown 01/05/2024 1 2:00 PM EST 01/05/2024 12:01 PM EST Narrative [employer] [facility] - 01/06/2024 6:14 AM EST FASTING:NO Luisa Chavira PA-C LAB - BLOOD DRAW Edited Resu lt - Final [facility] [address] [address], [employer] [address] [address] * [facility] (05/03/2022 3:00 AM EDT) Stool Stool specimen / Unknown 05/03/2022 3:00 AM EDT Benitez Awad MD LAB - NO BLOOD DRAW Edited Resul t - Final [facility] [address] [facility], [address] [facility] [id number] [place] [address], * (ABNORMAL) ACUTE HEPATITIS PANEL W/RFLX (04/23/2022 11:18 AM EDT) HEPATITIS A IGM ANTIBODY NON-REACT JESSE NON-REACT JESSE [facility] COM[facility] HEPATITIS B SURFACE ANTIGEN NON-REACT JESSE NON-REACT JESSE [employer] HEPATITIS B CORE IGM ANTIBODY NON-REACT JESSE NON-REACT JESSE [facility] HEPATITIS C ANTIBODY REACTIVE( A) NON-REACT JESSE [facility] SIGNAL TO CUT-OFF 8.76(H) <1.00 [facility] Comment: Based on this result, the sample will be tested for HCV RNA by a Nucleic Acid Amplification Test (NAAT) to determine if the patient has a current active infection. Blood Blood / Unknown 04/23/2022 1 1:18 AM EDT 04/23/2022 11:19 AM EDT Narrative [employer] [facility] - 04/25/2022 1:49 PM EDT AN UPDATE OR CORRECTION HAS BEEN MADE TO NAME For additional information, please refer to http://education.SpiderCloud Wireless/faq/RKR270 (This link is being provided for informational/ educational purposes only.) Luisa Chavira PA-C LAB - BLOOD DRAW Final Resul t [employer] [facility] [address] [place] [address], [facility] [address] [place] [phone] * REFERRAL FOR MAMMOGRAM (03/11/2021 4:37 PM EST) Luisa Chavira PA-C IMG RFL MAMMO Final Result * PAP, LIQUID BASED (05/12/2018 1:00 PM EDT) PAP normal NORMAL - ABNORMAL [facility] Specimen from uterine cervix (specimen) Cervix uteri structure / Unknown 05/12/2018 1:00 PM EDT Impressions [facility] - 05/18/2018 2:39 PM EDT Negative for squamous intraepithelial lesion and malignancy. HPV negative. Abundant RBCs present. James SCHERER LAB - NO BLOOD DRAW Final Result Performing Organization Address City/[facility]/ZIP Co de Phone Number [facility] [address] [place] [address], * HIV-1 & HIV-2 ANTIBODIES (11/01/2014 2:59 PM EDT) Pathologist [facility] HIV 1 AND 2 ANTIBODY SCREEN NEGATIVE NEGATIVE [facility] Comment: Effective 10/16/14, [employer] has replaced the HIV screening test with [...] 2:59 PM EDT 11/01/2014 3:32 PM EDT Narrative [facility] - 11/01/2014 8:24 PM EDT [facility] [address] [place] [address] PT ID [id number] ORD# [id number] Nevaeh Mulligan NP LAB - BLOOD DRAW Final Result Performing Organization Address City/[facility]/ZIP Co de Phone Number [address] [address], from Last 3 Months or Most Recently Relevant to Health Maintenance Insurance [employer] Member Subscriber Plan / Payer (Ef fective 2020-Present) Name:Teena Giles Relation to Subscriber:Self Name:Teena Manuel Payer ID:[id number] Type:Jukely Address: [facility] [address] [place] [address] [facility] Care Teams Aircraft Cabin Cleaner Relationship Specialty Start Date End Date Luisa Chavira PA-C [address] [place] [id number] PCP - General Internal Medicine 12/04/20
== END 2024-06-19 11:51 | disposition home or self-care (01) ==
LOC: HO.HBS 11:09
PROVIDERS: PCP Physician Assistant; Visit Provider Physician Assistant Surgical
DX: K59.00 Constipation, unspecified (principal); Z90.3 Acquired absence of stomach [part of]
CPT/HCPCS: 99213; G2211

== ENCOUNTER → 2024-06-19 11:08 | Outpatient (BNVA) | payer OTHER, SELFPAY | PROVIDERS: PCP Physician Assistant; Visit Provider Physician Assistant Surgical | DX: K59.00 Constipation, unspecified (principal); Z98.84 Bariatric surgery status | CPT/HCPCS: 99212 ==

== ENCOUNTER 2024-07-21 09:42 | Outpatient (REF) | payer OTHER, SELFPAY ==
[2024-07-21 11:03] LABS: Vitamin D 25-OH Total 16.3 ng/mL (>30)
[2024-07-26 17:18] LABS: Vitamin A 30 mcg/dL (38-98)
== END 2024-07-21 09:43 | disposition home or self-care (01) ==
LOC: HO.LAB 09:42
PROVIDERS: PCP Physician Assistant; Visit Provider Physician Assistant Surgical
DX: R79.89 Other specified abnormal findings of blood chemistry (principal); Z90.3 Acquired absence of stomach [part of]
CPT/HCPCS: 36415; 82306; 84590

== ENCOUNTER 2024-08-02 09:24 | Outpatient (AMB) | payer OTHER, SELFPAY ==
--- NOTE | 2024-08-02 09:50 | A.OFFVIS_ITS ---
VS Expanded 08/02/24 09:59 BP 133/73 Blood Pressure Location Rt brachial Blood Pressure Position Sitting Pulse 65 Pulse Source Pulse Oximeter Temp 97.4 F Temperature Source Temporal Artery Scan Pulse Oximetry 95 Oxygen Delivery Method Room Air Height 5 ft 4 in Weight 157 lb 9.6 oz BMI 27.0 Body Fat % 29.1 Body Fat Mass 45.8 Fat Free Mass 111.6 Visceral Fat Rating 7.0 Body Water % 50.3 Body Water Mass 79.2 Muscle Mass/Score 105.8 Basal Metabolic Rate/Score 1,485 Intake Visit Reasons: (OV) LSG 05/26/18 Acid Adjuster Required: No Allergies No Known Allergies (No Known Allergies*) Allergy (Verified 08/02/24 09:54) Medication List - Last Reconciled 08/02/24 by NIESHA May cholecalciferol (vitamin D3) 125 mcg PO DAILY 90 days levothyroxine 200 mcg PO DAILY multivitamin 1 tab PO DAILY sennosides (senna) 17.2 mg (2 x 8.6 mg) PO BEDTIME 90 days vitamin A palmitate 3,000 mcg PO DAILY zinc gluconate 30 mg PO DAILY 90 days HPI Comments Details: Patient is a 54-year-old female who returns to the office today in follow-up. She is 6 years 2 month post sleeve gastrectomy performed 05/26/2018. Weight today is 157.6 lb with a BMI of 27. She reports that overall, she is doing very well. No further significant reflux however she does note sometimes food getting stuck. This occurs when she eats quickly at her job. She reports no significant reflux with the protein shakes. Meal plan: wakes at 7 am bed at 8 pm Premier protein shake, ready to drink Half the container mixed with 4 oz of unsweetened almond milk, 8-10 am meal with 5 forks protein and 5 forks veg, 12-2 pm Another shake with half of the box mixed with 4 oz of unsweetened almond milk, 3-5 pm Increase water to 32 oz per day exercise plan: walking treadmill 30 min, 2-3 days per week [facility] Medical History Headaches due to old head injury Anxiety Hypothyroidism Thyroid disease Hx of thyroid cancer Surgical History Hx of hernia repair H/O thyroidectomy Hx of esophagogastroduodenoscopy S/P panniculectomy History of sleeve gastrectomy Hx of cholecystectomy Family History Father Diabetes mellitus Glaucoma Hypertension Mother Glaucoma Diabetes mellitus Hypertension Brother Hypertension Sister Arthritis Social History Alcohol intake: never Comment: gas pain per pt Patient Tobacco Use Status: Never used Tobacco Second Hand Smoke Exposure: No service: No Current occupational status: employed Physical Exam Const General: healthy appearing and no acute distress Resp Effort & Inspection: normal respiratory effort Auscultation: clear to auscultation bilaterally Cardio Rate: regular rate Rhythm: regular rhythm GI Auscultation: normal bowel sounds Extrem General: Yes normal to inspection Assessment & Plan Assessment & Plan (1) History of sleeve gastrectomy: Comment: 2019 Code(s): Z90.3 - Acquired absence of stomach [part of] Category: Surgical Plan: Patient will switch her meal plan to do shake, shake, meal. This will allow her additional time to have her meal and she was instructed that if she were to slow down and take smaller bites, her discomfort with swallowing should completely resolve. Additionally, discussed increasing her exercise as she is limited on this due to her commitment to the nondenominational. She will try to incorporate more exercise. Follow-up in the office in 2 months.
[2024-08-02 09:59] VITALS: BP 133/73; PULSE 65; TEMP 36.3; O2SAT 95; BMI 27.0
--- OUTSIDE RECORDS SUMMARY | 2024-08-02 10:22 | XMS_ITS | Clinical Summary ---
Author Organization [facility] Address [address] [place] [address] Care Team Providers Care Women Nurse Name Role Phone Luisa Chavira PA-C Primary Care Provider + [phone] Source Comments PLEASE NOTE, if this patient [...] psteIndications:Ca reynold involving multiple surfaces of tooth Amber twice a day every day for 2 [...] (BMI) of 40.0 to 44.9 in adult 01/19/2018 Overview (09/02/2018): Following up with Weight management treatment plan diet, exercise Goal weight lose 2.5 pounds a week Sees [facility] weight management. 01-17-18 Abnormal mammogram of right [...] [facility] 2014 negative Prediabetes 05/04/2014 Thyroid cancer (HCC-CMS) 04/09/2014 Overview (05/04/2014): Seeing Tamika Savage in [place], Dr. Phan next appt in 2014. Follow up [place] Depression with anxiety 04/09/2014 Overview (04/09/2014): Was seeing psych [facility] HTN (hypertension) 04/09/2014 Hx of thyroidectomy 04/09/2014 Overview (07/31/2014): US Q6 months, Hx of thyroid cancer, thyroidectomy, seeing [facility] in [place], had US 04/06 Tinea corporis 04/09/2014 Irregular menses 04/09/2014 Headache 04/09/2014 Resolved Problems Problem Noted Date Diagnosed Date Resolved Date Type 2 diabetes mellitus without complication 04/04/19 16 11/10/2015 Impacted cerumen of both ears 04/09/2014 09/27/2020 Immunizations Immunization Administration Dates Next Due Flu, Preservative Free 04/23/2022,11/11/2017,09/2016 Hep B, Adult/Adol (ENERGIX/RECOMBIVAX) 04/06/2018 INFLUENZA, SEASONAL, INJECTABLE 11/08/2015,10/19 PPD 03/29/2019, 9,03/10/2017,2015 Pfizer-BioNTech COVID-19 Vac cine Bivalent, (MONTERO PFIZER-BIONTECH COVID-19 [...] Industry Job Start Date Job End Date [employer] Not on file Not on file Not on file Last Filed Vital Signs Vital Sign Reading Time Taken Comments Blood Pressure 122/70 01/05/2024 11:23 AM EST Pulse 60 01/05/2024 11:23 AM EST Temperature 37 C (98.6 F) 01/05/2024 11:23 AM EST Respiratory Rate 16 [...] 022 Dental Prophy 01/01/2023 12/30/2021, 06/26/2021 Annual Wellness (Adult): Indicated (All Coverage) 04/24/2023 04/23/2022, 05/12/2018, 02/11/2018, Additional history exists FIT/gFOBT 05/04/2023 05/03/2022 [id number] ( season) 2023 022 Alcohol and Drug Screen 02/09/2024 01/05/20 24, 04/23/2022, 11/05/2020, Additional history exists Depression Monitoring 04/06/2024 01/05/2024 , 03/04/2022, 11/05/2020, Additional history exists Imm-Influenza (Season Ended) 2024, 11/11/2017, 01/15/2017, Additional history exists Diabetes Screening 01/04/2025 01/05/2024, [...] 3:00 AM EDT) 05/12/2024 3:00 AM EDT Ixchel[facility] PA-C SCAN REFERRAL Final Result * LAB SCANNED DOCUMENT (05/12/2024 3:00 AM EDT) Only the most recent of4 resultswithin the time period is included. 05/12/2024 3:00 AM EDT Ixchel[facility]na PA-C SCAN LAB Final Result * (ABNORMAL) LIPIDS W RFLX TO DIRECT LDL (01/05/2024 12:00 PM EST) Pathologist [facility] CHOLESTEROL, TOTAL 184 <200 mg/dL [facility] HDL CHOLESTEROL 53 > OR = 50 mg/dL [facility] TRIGLYCERIDES 78 <150 mg/dL [facility] LDL-CHOLESTEROL 114(H) 99 mg/dL (calc) [facility] Comment: Reference range: <100 Desirable range <100 mg/dL for primary prevention; <70 mg/dL for patients with CHD or diabetic patients with > or = 2 CHD risk factors. LDL-C is now calculated using the Charanjit calculation, which is a validated novel method providing better accuracy than the Friedewald equation in the estimation of LDL-C. Jesus SS et al. KRUNAL. 2013;310(19): 8898-6638 (http://education.[employer]/faq/YRP135) CHOL/HDLC RATIO 3.5 <5.0 (calc) [facility] NON-HDL CHOLESTEROL 131(H) <130 mg/dL (calc) [facility] Comment: For patients with diabetes plus 1 major ASCVD risk factor, treating to a non-HDL-C goal of <100 mg/dL (LDL-C of <70 mg/dL) is considered a therapeutic option. Blood Blood / Unknown 01/05/2024 1 2:00 PM EST 01/05/2024 12:01 PM EST Narrative [facility] - 01/06/2024 6:14 AM EST FASTING:NO us Luisa Chavira PA-C LAB - BLOOD DRAW Final Resul t [facility] [address] [address], [facility] [address] [place] [address] * (ABNORMAL) COMPREHENSIVE METABOLIC PANEL (01/05/2024 12:00 PM EST) [facility] GLUCOSE 85 65 - 139 mg/dL [facility] Comment: Non-fasting reference interval UREA NITROGEN (BUN) 12 7 - 25 mg/dL [facility] CREATININE (blood) 0.77 0.50 - 1.03 mg/dL [facility] EGFR 92 > OR = 60 mL/min/1. 73m2 [facility] BUN/CREATININE RATIO SEE NOTE: 6 - [facility] Comment: Not Reported: BUN and Creatinine are within reference range. SODIUM 133(L) 135 - 146 mmol/L [facility] POTASSIUM 4.7 3.5 - 5.3 mmol/L [facility] CHLORIDE 100 98 - 110 mmol/L [facility] CARBON DIOXIDE 28 20 - 32 mmol/L [facility] CALCIUM 9.2 8.6 - 10.4 mg/dL [facility] PROTEIN, TOTAL 9.0(H) 6.1 - 8.1 g/dL [facility] ALBUMIN 4.1 3.6 - 5.1 g/dL [facility] GLOBULIN 4.9(H) 1.9 - 3.7 g/dL (calc) [facility] ALBUMIN/GLOBULI N RATIO 0.8(L) 1.0 - 2.5 (calc) [facility] BILIRUBIN, TOTAL 0.7 0.2 - 1.2 mg/dL [facility] ALKALINE PHOSPHATASE 43 37 - 153 U/L [facility] AST 24 10 - 35 U/L [facility] ALT 18 6 - 29 U/L [facility] Blood Blood / Unknown 01/05/2024 1 2:00 PM EST 01/05/2024 12:01 PM EST Narrative [facility] - 01/06/2024 6:14 AM EST FASTING:NO Luisa Chavira PA-C LAB - BLOOD DRAW Edited Resu lt - Final [facility] [address] [address], [facility] [address] [address] * [facility] (05/03/2022 3:00 AM EDT) Stool Stool specimen / Unknown 05/03/2022 3:00 AM EDT Benitez Awad MD LAB BODY FLUIDS AND STOOLS AMBUL ATORY Edited Result - Final [employer] [address] [facility], [address] CLMS [id number] [place] [address], * (ABNORMAL) HEPATITIS PANEL W/RFLX (04/23/2022 11:18 AM EDT) HEPATITIS A IGM ANTIBODY NON-REACT JESSE NON-REACT JESSE [employer] [facility] COMMENT [employer] HEPATITIS B SURFACE ANTIGEN NON-REACT JESSE NON-REACT JESSE [employer] [facility] HEPATITIS B CORE IGM ANTIBODY NON-REACT JESSE NON-REACT JESSE [facility] HEPATITIS C ANTIBODY REACTIVE( A) NON-REACT JESSE [employer] SIGNAL TO CUT-OFF 8.76(H) <1.00 QU [facility] Comment: Based on this result, the sample will be tested for HCV RNA by a Nucleic Acid Amplification Test (NAAT) to determine if the patient has a current active infection. Blood Blood / Unknown 04/23/2022 1 1:18 AM EDT 04/23/2022 11:19 AM EDT Narrative [employer] - 04/25/2022 1:49 PM EDT AN UPDATE OR CORRECTION HAS BEEN MADE TO NAME For additional information, please refer to http://education.Mobile[employer]force/faq/FAV217 (This link is being provided for informational/ educational purposes only.) us Liusa Chavira PA-C LAB - BLOOD DRAW Final Resul t [employer] [address] [place] [id number], [employer] [address] [place] [id number] * REFERRAL FOR MAMMOGRAM SCREENING (03/11/2021 4:37 PM EST) us Luisa Chavira PA-C IMG RFL MAMMO Final Result * PAP, LIQUID BASED (05/12/2018 1:00 PM EDT) PAP normal NORMAL - ABNORMAL [facility] Specimen from uterine cervix (specimen) Cervix uteri structure / Unknown 05/12/2018 1:00 PM EDT Impressions [facility] - 05/18/2018 2:39 PM EDT Negative for squamous intraepithelial lesion and malignancy. HPV negative. Abundant RBCs present. James SCHERER LAB - PATHOLOGY AND CYTOLOGY AMB ULATORY Final Result Performing Organization Address [facility] Co de Phone Number [facility] [address] [address], * HIV-1 & HIV-2 ANTIBODIES (11/01/2014 2:59 PM EDT) HIV 1 AND 2 ANTIBODY SCREEN NEGATIVE NEGATIVE [facility] Comment: Effective 10/16/14, [employer] has replaced the HIV screening test with a 4th generation HIV Ag/Ab Combo assay. This assay allows for the simultaneous qualitative detection of HIV p24 antigen and antibodies to HIV type 1 (including group O) and type 2. The assay is intended to be used as an aid in the diagnosis of HIV infection in pediatric and adult populations, including women. The 4th generation assay allows for earlier detection of HIV infection by detecting the presence of the HIV-1 p24 antigen as well as the traditional antibodies. Use of a 4th generation assay is the current CDC recommendation for HIV screening. Blood specimen (specimen) Blood / Unknown 11/01/2014 2:59 PM EDT 11/01/2014 3:32 PM EDT Narrative [facility] - 11/01/2014 8:24 PM EDT [facility] [employer] [address] [place] [address] PT ID [id number] ORD# [id number] Neveah Mulligan NP LAB - BLOOD DRAW Final Result Performing Organization Address [facility]/ZIP Co de Phone Number [address] [address], from Last 3 Months or Most Recently Relevant to Health Maintenance Insurance [employer] Member Subscriber Plan / Payer (Ef fective 2020-Present) Name:Teena Giles Relation to Subscriber:Self Name:Teena Manuel Payer ID:[id number] Type:iXpert Address: [facility] [address] [place] [address] [facility] Care Teams Women Nurse Relationship Specialty Start Date End Date Luisa Chavira PA-C [address] [place] [address] PCP - General Internal Medicine 12/04/20
== END 2024-08-02 10:18 | disposition home or self-care (01) ==
LOC: HO.HBS 09:24
PROVIDERS: PCP Physician Assistant; Visit Provider Physician Assistant Surgical
DX: E66.3 Overweight (principal); Z68.27 Body mass index [BMI] 27.0-27.9, adult; Z90.3 Acquired absence of stomach [part of]; Z98.84 Bariatric surgery status
CPT/HCPCS: 99213

== ENCOUNTER → 2024-08-02 09:24 | Outpatient (BNVA) | payer OTHER, SELFPAY | PROVIDERS: PCP Physician Assistant; Visit Provider Physician Assistant Surgical | DX: Z71.3 Dietary counseling and surveillance (principal); Z90.3 Acquired absence of stomach [part of] | CPT/HCPCS: 99212 ==

== ENCOUNTER 2024-10-02 10:11 | Outpatient (AMB) | payer OTHER, SELFPAY ==
--- NOTE | 2024-10-02 10:25 | A.OFFVIS_ITS ---
VS Expanded 10/02/24 10:50 BP 125/63 Blood Pressure Location Lt brachial Blood Pressure Position Sitting Pulse 63 Pulse Source Pulse Oximeter Pulse Oximetry 96 Oxygen Delivery Method Room Air Height 5 ft 4 in Weight 153 lb 2 oz BMI 26.3 Body Fat % 29.3 Body Fat Mass 44.8 Fat Free Mass 108.2 Visceral Fat Rating 6.0 Body Water % 50.1 Body Water Mass 76.8 Muscle Mass/Score 102.8 Basal Metabolic Rate/Score 1,443 Intake Visit Reasons: (OV) LSG 05/26/18 Tree Thinner Required: No Allergies No Known Allergies (No Known Allergies*) Allergy (Verified 08/02/24 09:54) HPI Comments Details: Patient is a 54-year-old female who returns to the office today in follow-up. She is 6 years 4 month post sleeve gastrectomy performed 05/26/2018. Weight today is 153.2 lb with a BMI of 26.3. She reports that overall, she is doing very well. She states that she is often skipping her half shake. She has additionally not been drinking as much fluids and had not been feeling well. She had constipation but this has since resolved. Meal plan: wakes at 7 am bed at 8 pm Premier protein shake, ready to drink Half the container mixed with 4 oz of unsweetened almond milk, 8-10 am other 1/2 of bottle 12-2 meal with 5 forks protein and 5 forks veg, 3-5pm Increase water to 32 oz per day exercise plan: walking at her job nothing formal [facility] Medical History Headaches due to old head injury Anxiety Hypothyroidism Thyroid disease Hx of thyroid cancer Surgical History Hx of hernia repair H/O thyroidectomy Hx of esophagogastroduodenoscopy S/P panniculectomy History of sleeve gastrectomy Hx of cholecystectomy Family History Father Diabetes mellitus Glaucoma Hypertension Mother Glaucoma Diabetes mellitus Hypertension Brother Hypertension Sister Arthritis Social History Alcohol intake: never Comment: gas pain per pt Patient Tobacco Use Status: Never used Tobacco Second Hand Smoke Exposure: No service: No Current occupational status: employed Physical Exam Const General: healthy appearing and no acute distress Resp Effort & Inspection: normal respiratory effort Auscultation: clear to auscultation bilaterally Cardio Rate: regular rate Rhythm: regular rhythm GI Auscultation: normal bowel sounds Extrem General: Yes normal to inspection Assessment & Plan Assessment & Plan (1) History of sleeve gastrectomy: Comment: 2019 Code(s): Z90.3 - Acquired absence of stomach [part of] Category: Surgical Plan: Overall, patient is doing well. I did recommend that she follow the meal plan exactly. Additionally, due to constipation, she does have senna. Discussed the importance of water intake and recommended at least 50-60 oz of water per day. She certainly may have Gatorade 0 or crystal light if she wishes. Encouraged to exercise regularly. We will have her return to the office for her yearly follow-up.
[2024-10-02 10:50] VITALS: BP 125/63; PULSE 63; O2SAT 96; BMI 26.3
--- OUTSIDE RECORDS SUMMARY | 2024-10-02 11:17 | XMS_ITS | Clinical Summary ---
Author Organization [facility] Address [address] [place] [address] Care Team Providers Care Ceramics Artist Name Role Phone Luisa Chavira PA-C Primary Care Provider + [phone] Source Comments PLEASE NOTE, if this patient [...] psteIndications:Ca reynold involving multiple surfaces of tooth [place] twice a day every day for 2 [...] (BMI) of 40.0 to 44.9 in adult ([facility]) 01/19/2018 Overview (09/02/2018): Following up with Weight management treatment plan diet, exercise Goal weight lose 2.5 pounds a week Sees [facility] weight management. 01-17-18 Abnormal mammogram of right [...] [facility] 2014 negative Prediabetes 05/04/2014 Thyroid cancer ([facility]) 04/09/2014 Overview (05/04/2014): Seeing denise [facility] in [place], Dr. Phan next appt in 2014. Follow up [place] Depression with anxiety 04/09/2014 Overview (04/09/2014): Was seeing psych [facility] HTN (hypertension) 04/09/2014 Hx of thyroidectomy 04/09/2014 Overview (07/31/2014): US Q6 months, Hx of thyroid cancer, thyroidectomy, seeing [facility] in [place], [facility] [place] 04/06 Tinea corporis 04/09/2014 Irregular menses 04/09/2014 Headache 04/09/2014 Resolved Problems Problem Noted Date Diagnosed Date Resolved Date Type 2 diabetes mellitus without complication 04/04/19 16 11/10/2015 Impacted cerumen of both ears 04/09/2014 09/27/2020 Immunizations Immunization Administration Dates Next Due Flu, Preservative Free 04/23/2022,11/11/2017,09/2016 Hep B, Adult/Adol ([id number]-FPCXN/RECOMBIVAX-ADULT) 04/06/2018 INFLUENZA, SEASONAL, INJECTABLE 11/08/2015,10/19 PPD 03/29/2019, [...] Industry Job Start Date Job End Date [employer] LEAD[employer] Not on file Not on file Not [...] - 19 + 3-dose series) 05/04/2018 04/06/2018 Imm-Pneumococcal 50+ (2 of 2 - PCV) 07/30/2019 07/09/2016 Cervical Cancer Screening 05/12/2021 Pap Smear 05/12/2021 05/12/2018 Breast Cancer Screening (Mammogram) 03/11/2022 03/11/2021, 02/04/2021, 06/08/2017, Additional history exists Dental BW 01/01/2023 12/30/2021, 06/26/2021 Dental Examination 01/01/2023 12/30/2021, 06/26/2021 Dental Perio Charting 01/01/2023 12/30/2021, 022 Dental Prophy 01/01/2023 12/30/2021, 06/26/2021 Annual Wellness (Adult): Indicated (All Coverage) 04/24/2023 04/23/2022, 05/12/2018, 02/11/2018, Additional history exists FIT/gFOBT 05/04/2023 05/03/2022 [id number] ( season) 2023 022 Alcohol and Drug Screen 02/09/2024 01/05/20 24, 04/23/2022, 11/05/2020, Additional history exists Depression Monitoring 04/06/2024 01/05/2024 , 03/04/2022, 11/05/2020, Additional history exists Imm-Influenza (#1) 2024 04/23/2022, 1 , 01/15/2017, Additional history exists Diabetes Screening 01/04/2025 [...] Date/Time Associated Diagnosis Comments REFERRAL SCANNED DOCUMENT 08/02/2024 3:00 AM EDT COMPREHENSIVE METABOLIC PANEL Routine [...] Health Maintenance Results * REFERRAL SCANNED DOCUMENT (08/02/2024 3:00 AM EDT) 08/02/2024 3:00 AM EDT Luisa Chavira PA-C SCAN REFERRAL Final Result * (ABNORMAL) LIPIDS W RFLX TO DIRECT LDL (01/05/2024 12:00 PM EST) CHOLESTEROL, TOTAL 184 <200 mg/dL [facility] HDL CHOLESTEROL 53 > OR = 50 mg/dL [facility] TRIGLYCERIDES 78 <150 mg/dL [facility] LDL-CHOLESTEROL 114(H) 99 mg/dL (calc) [facility] Comment: Reference range: <100 Desirable range <100 mg/dL for primary prevention; <70 mg/dL for patients with CHD or diabetic patients with > or = 2 CHD risk factors. LDL-C is now calculated using the Charanjit calculation, which is a validated novel method providing better accuracy than the Friedewald equation in the estimation of LDL-C. Jesus ELY et al. KRUNAL. 2013;310(19): 7782-9753 (http://education.SeeVolution/faq/TCN564) CHOL/HDLC RATIO 3.5 <5.0 (calc) [facility] NON-HDL CHOLESTEROL 131(H) <130 mg/dL (calc) [facility] Comment: For patients with diabetes plus 1 major ASCVD risk factor, treating to a non-HDL-C goal of <100 mg/dL (LDL-C of <70 mg/dL) is considered a therapeutic option. Blood Blood / Unknown 01/05/2024 1 2:00 PM EST 01/05/2024 12:01 PM EST Narrative [facility] - 01/06/2024 6:14 AM EST FASTING:NO Luisa Chavira PA-C LAB - BLOOD DRAW Final Resul t [facility] [address] [address], [facility] [address] [address] * (ABNORMAL) COMPREHENSIVE METABOLIC PANEL (01/05/2024 12:00 PM EST) GLUCOSE 85 65 - 139 mg/dL [facility] Comment: Non-fasting reference interval UREA NITROGEN (BUN) 12 7 - 25 mg/dL [facility] CREATININE (blood) 0.77 0.50 - 1.03 mg/dL [facility] EGFR 92 > OR = 60 mL/min/1. 73m2 [facility] BUN/CREATININE RATIO SEE NOTE: [facility] Comment: Not Reported: BUN and Creatinine are within reference range. SODIUM 133(L) 135 - 146 mmol/L [facility] POTASSIUM 4.7 3.5 - 5.3 mmol/L [facility] CHLORIDE 100 98 - 110 mmol/L [facility] CARBON DIOXIDE 28 20 - 32 mmol/L [facility] CALCIUM 9.2 8.6 - 10.4 mg/dL [facility] PROTEIN, TOTAL 9.0(H) 6.1 - 8.1 g/dL [facility] ALBUMIN 4.1 3.6 - 5.1 g/dL [facility] GLOBULIN 4.9(H) 1.9 - 3.7 g/dL (calc) [facility] ALBUMIN/GLOBULI N RATIO 0.8(L) 1.0 - 2.5 (calc) [facility] BILIRUBIN, TOTAL 0.7 0.2 - 1.2 mg/dL [facility] ALKALINE PHOSPHATASE 43 37 - 153 U/L [facility] AST 24 10 - 35 U/L [facility] ALT 18 6 - 29 U/L [facility] Blood Blood / Unknown 01/05/2024 1 2:00 PM EST 01/05/2024 12:01 PM EST Narrative [facility] - 01/06/2024 6:14 AM EST FASTING:NO Luisa Chavira PA-C LAB - BLOOD DRAW Edited Resu lt - Final Performing Organization Address City/[facility]/ZIP Co de Phone Number [facility] [address] [address], [facility] [address] [phone] * [facility] (05/03/2022 3:00 AM EDT) Stool Stool specimen / Unknown 05/03/2022 3:00 AM EDT Benitez Awad MD LAB BODY FLUIDS AND STOOLS AMBUL ATORY Edited Result - Final [facility] [address] [facility], [address] [facility] [id number] [place] [address], * (ABNORMAL) HEPATITIS PANEL W/RFLX (04/23/2022 11:18 AM EDT) HEPATITIS A IGM ANTIBODY NON-REACT JESSE NON-REACT JESSE [facility] COMMENT [facility] HEPATITIS B SURFACE ANTIGEN NON-REACT JESSE NON-REACT JESSE [facility] HEPATITIS B CORE IGM ANTIBODY NON-REACT JESSE NON-REACT JESSE [facility] HEPATITIS C ANTIBODY REACTIVE( A) NON-REACT JESSE [facility] SIGNAL TO CUT-OFF 8.76(H) <1.00 QU [facility] Comment: Based on this result, the sample will be tested for HCV RNA by a Nucleic Acid Amplification Test (NAAT) to determine if the patient has a current active infection. Blood Blood / Unknown 04/23/2022 1 1:18 AM EDT 04/23/2022 11:19 AM EDT Narrative [facility] [employer] - 04/25/2022 1:49 PM EDT AN UPDATE OR CORRECTION HAS BEEN MADE TO NAME For additional information, please refer to http://education.GIDEEN/faq/SYS067 (This link is being provided for informational/ educational purposes only.) Luisa Chavira PA-C LAB - BLOOD DRAW Final Resul t Performing Organization Address City/[facility]/ZIP Co de Phone Number [facility] [address] [address], [facility] [address] [address] * REFERRAL FOR MAMMOGRAM SCREENING (03/11/2021 4:37 PM EST) Luisa Chavira PA-C IMG RFL MAMMO Final Result * PAP, LIQUID BASED (05/12/2018 1:00 PM EDT) PAP normal NORMAL - ABNORMAL [facility] Specimen from uterine cervix (specimen) Cervix uteri structure / Unknown 05/12/2018 1:00 PM EDT Impressions [facility] - 05/18/2018 2:39 PM EDT Negative for squamous intraepithelial lesion and malignancy. HPV negative. Abundant RBCs present. us [facility] - PATHOLOGY AND CYTOLOGY AMB ULATORY Final Result Performing Organization Address City/[facility]/ZIP Co de Phone Number [facility] [address] [place] [phone], * HIV-1 & HIV-2 ANTIBODIES (11/01/2014 2:59 PM EDT) [facility] HIV 1 AND 2 ANTIBODY SCREEN NEGATIVE NEGATIVE [facility] Comment: Effective 10/16/14, [employer] has replaced the HIV screening test with [...] 2:59 PM EDT 11/01/2014 3:[address] [facility] - 11/01/2014 8:24 PM EDT [address] [address] [place] [id number] ORD# [id number] Nevaeh Mulligan NP LAB - BLOOD DRAW Final Result [address] [address], from Last 3 Months or Most Recently Relevant to Health Maintenance Insurance [employer] Member Subscriber Plan / Payer (Ef fective 2020-Present) Name:Teena Giles Relation to Subscriber:Self Name:Teena Manuel Payer ID:[id number] Type:Indemnity Address: [facility] [address] [place] [address] [facility] Care Teams Ceramics Artist Relationship Specialty Start Date End Date Luisa Chavira PA-C [address] [place] [id number] PCP - General Internal Medicine 12/04/20
== END 2024-10-02 11:05 | disposition home or self-care (01) ==
LOC: HO.HBS 10:12
PROVIDERS: PCP Physician Assistant; Visit Provider Physician Assistant Surgical
DX: E66.3 Overweight (principal); Z68.26 Body mass index [BMI] 26.0-26.9, adult; Z90.3 Acquired absence of stomach [part of]; Z98.84 Bariatric surgery status
CPT/HCPCS: 99213

== ENCOUNTER → 2024-10-02 10:11 | Outpatient (BNVA) | payer OTHER, SELFPAY | PROVIDERS: PCP Physician Assistant; Visit Provider Physician Assistant Surgical | DX: Z71.3 Dietary counseling and surveillance (principal); Z90.3 Acquired absence of stomach [part of]; K59.00 Constipation, unspecified | CPT/HCPCS: 99212 ==